=== PATIENT | male | born 1960 | race Caucasian/White ===

== ENCOUNTER 2016-04-20 08:55 | Day surgery (SDC) | payer OTHER ==
[~2016-04-20 08:55] MED LIST: LACTATED RINGERS 1,000 ML IV SCH
[2016-04-20 10:26] VITALS: TEMP 98.2
[2016-04-20] MEDS ORDERED: TRIAMCINOLONE ACETONIDE 40 MG/ML 1 ML VIAL ONE (10:33)
[2016-04-20] MEDS ORDERED: IOHEXOL 180 MG/ML 1 ML ML ONE (10:33)
[2016-04-20] MEDS ORDERED: fentaNYL (PF) 50 MCG/ML 2 ML AMP ONE (10:33)
[2016-04-20] MEDS ORDERED: MIDAZOLAM 2 MG/2 ML VIAL ONE (10:33)
--- NOTE | 2016-04-20 10:57 | P.PCN ---
Date of Procedure: 04/20/16 Procedure(s) Performed: PREOP DIAGNOSIS: 1- Lumbar postlaminectomy syndrome POSTOP DIAGNOSIS:1- Lumbar postlaminectomy syndrome PROCEDURE: Caudal epidural steroid injection with epidurolysis and epidurogram under fluoroscopic guidance ANESTHESIA: Local with 1% lidocaine 3 ml ; IV sedation with Versed mg and fentanyl 200 g EBL: Minimal. PROCEDURE INDICATION: The patient with post-laminectomy syndrome with low back pain and radiculopathy radiating down in both legs, here for a caudal epidural steroid injection with epidurolysis. PROCEDURE DESCRIPTION: The patient was seen and identified in the preoperative area. Risks, benefits, complications, and alternatives were discussed with the patient. The patient agreed to proceed with the procedure and signed the consent. IV was started, and vital signs were stable. Patient was taken to the OR and time out was completed. The patient was placed in the prone position on procedure table and a pillow was placed under the abdomen to reduce lumbar lordosis. The lumbosacral area was prepped and draped in the usual sterile fashion. Vital signs were closely monitored during the procedure. lateral view and the anterior-posterior plates of the sacrum were identified with infiltration of the area overlying the sacral hiatus with 1% lidocaine .A 17 gauge RK epidural needle was used to advance through the sacral hiatus into the caudal epidural space. Omnipaque 180 dye. 2cc was injected and the position of the needle was verified to be in the midline. A Racz catheter was introduced into the epidural space and was advanced towards the L5-S1 interspace under direct fluoroscopic guidance. Multiple passes were made with the catheter for lysis of epidural adhesions. Kenalog 80 mg with 3ml of preservative free Lidocaine 1% and 5 ml of preservative free normal saline was injected slowly. Additional spread was seen to L4 under fluoroscopy. The needle and the catheter were withdrawn intact. EPIDUROGRAM: Omnipaque 180 mg dye 2 ml was injected with spread of the dye into the caudal epidural space and with spread cutoff at L5 prior to epidurolysis. Post epidurolysis dye 2 ml was injected and spread was seen to L4- 5 .There was further spread of the solution together with the dye above the L3 COMPLICATIONS: None. DISPOSITION / PLANS: The patient was placed in a supine position and transferred to the recovery area in a stable condition for observation and was discharged from the recovery room after meeting discharge criteria. Home discharge instructions given to the patient by the staff. The patient was reexamined prior to discharge. The patient will schedule a follow up in the clinic in 2-4 weeks.
[2016-04-20] MEDS: IV FLUID CONTINUATION 1,000 ML IV ONE ×2 (11:10→11:33)
[2016-04-20 11:14] VITALS: RESP 16
[2016-04-20 11:26] VITALS: BP 115/70; PULSE 58
--- NOTE | 2016-04-20 11:37 | FL ---
EXAMINATION TYPE: FL guided pain mgmt statistic DATE OF EXAM: 04/20/2016 11:25 AM CLINICAL HISTORY: Low back and sacral pain. TECHNIQUE: Fluoroscopy. COMPARISON: None. FINDINGS: Fluoroscopic guidance was provided during pain relief procedure performed by Dr. Mcgarry . A total of 8 seconds of fluoroscopic time was utilized during the procedure and 3 spot images are acquired. Images acquired shows needle localization at level of the sacrum. Postsurgical changes in the lower lumbar spine are noted. IMPRESSION: As Above.
== END 2016-04-20 11:35 | disposition home or self-care (01) ==
LOC: ORPAIN 08:55
PROVIDERS: ATTEND Specialist
DX: M96.1 Postlaminectomy syndrome, not elsewhere classified (principal)
CPT/HCPCS: 62264; J2250; J3301; Q9965; J3010

== ENCOUNTER → 2016-05-12 | Day surgery (SDC) | payer OTHER ==
[2016-05-07 11:11] VITALS: BMI 24.9
[~2016-05-12] MED LIST changes: +IOHEXOL 180 MG/ML 1 ML ML ONE; -LACTATED RINGERS 1,000 ML IV SCH; +MIDAZOLAM 2 MG/2 ML VIAL ONE; +TRIAMCINOLONE ACETONIDE 40 MG/ML 1 ML VIAL ONE; +fentaNYL (PF) 50 MCG/ML 2 ML AMP ONE
[2016-05-12 08:20] VITALS: TEMP 97.7
[2016-05-12] MEDS: LIDOCAINE 1% 20 ML VIAL (10MG/ML) FOR IV START INTRADERMA ONE (08:34)
[2016-05-12] MEDS: LACTATED RINGERS 1,000 ML IV SCH (08:34)
[2016-05-12 08:37] LABS: Glucose,Whole Blood 89 mg/dL (75-99)
--- NOTE | 2016-05-12 09:22 | P.PCN ---
Date of Procedure: 05/12/16 Procedure(s) Performed: PREOP DIAGNOSIS: 1- Lumbar postlaminectomy syndrome POSTOP DIAGNOSIS:1- Lumbar postlaminectomy syndrome PROCEDURE: Caudal epidural steroid injection with epidurolysis and epidurogram under fluoroscopic guidance ANESTHESIA: Local with 1% lidocaine 3 ml ; IV sedation with Versed 2 mg and fentanyl 150 g EBL: Minimal. PROCEDURE INDICATION: The patient with post-laminectomy syndrome with low back pain and radiculopathy radiating down in both legs, here for a caudal epidural steroid injection with epidurolysis. PROCEDURE DESCRIPTION: The patient was seen and identified in the preoperative area. Risks, benefits, complications, and alternatives were discussed with the patient. The patient agreed to proceed with the procedure and signed the consent. IV was started, and vital signs were stable. Patient was taken to the OR and time out was completed. The patient was placed in the prone position on procedure table and a pillow was placed under the abdomen to reduce lumbar lordosis. The lumbosacral area was prepped and draped in the usual sterile fashion. Vital signs were closely monitored during the procedure. lateral view and the anterior-posterior plates of the sacrum were identified with infiltration of the area overlying the sacral hiatus with 1% lidocaine .A 17 gauge RK epidural needle was used to advance through the sacral hiatus into the caudal epidural space. Omnipaque 180 dye. 2cc was injected and the position of the needle was verified to be in the midline. A Racz catheter was introduced into the epidural space and was advanced towards the L5-S1 interspace under direct fluoroscopic guidance. Multiple passes were made with the catheter for lysis of epidural adhesions. Kenalog 80 mg with 3ml of preservative free Lidocaine 1% and 5 ml of preservative free normal saline was injected slowly. Additional spread was seen to L4 under fluoroscopy. The needle and the catheter were withdrawn intact. EPIDUROGRAM: Omnipaque 180 mg dye 2 ml was injected with spread of the dye into the caudal epidural space and with spread cutoff at L5 prior to epidurolysis. Post epidurolysis dye 2 ml was injected and spread was seen to L3- 4.There was further spread of the solution together with the dye above the L3 COMPLICATIONS: None. DISPOSITION / PLANS: The patient was placed in a supine position and transferred to the recovery area in a stable condition for observation and was discharged from the recovery room after meeting discharge criteria. Home discharge instructions given to the patient by the staff. The patient was reexamined prior to discharge. The patient will schedule a follow up in the clinic in 2-4 weeks.
[2016-05-12] MEDS: IV FLUID CONTINUATION 1,000 ML IV ONE ×2 (09:27→10:06)
--- NOTE | 2016-05-12 09:36 | FL ---
FLUOROSCOPY 4 seconds of fluoroscopy time were utilized during Pain Injection. 2 images document the procedure.
[2016-05-12 10:08] VITALS: BP 134/89; PULSE 64; RESP 18
== END ==
LOC: ORPAIN 07:50
PROVIDERS: ATTEND Specialist
DX: M96.1 Postlaminectomy syndrome, not elsewhere classified (principal)
CPT/HCPCS: 62264; J2250; J3301; Q9965; J3010

== ENCOUNTER → 2016-06-14 | Outpatient (CLI) | payer OTHER ==
[2016-06-14 14:37] VITALS: BP 123/84; PULSE 99; RESP 16; TEMP 98.5
--- NOTE | 2016-06-14 14:45 | P.PN ---
Progress Note - Text Patient returns for followup for chronic neck and back pain with radiation to bilateral lower extremities with numbness/tingling. Patient recently underwent caudal SHAI x 3, which provided some relief for 1-2 weeks' interval, and now patient wishes to return to Dr. Vargas to reconsider spine surgery. Patient continues on [place] [facility] for [facility] with good relief. Patient denies adverse drug effects from medications. Today, pt denies new-onset weakness, bowel/bladder incontinence, or any other signs or symptoms of cauda equina syndrome. There are no signs of acute intoxication, and no indications of medication diversion or overuse. In addition to above, 13-point review of systems is also negative for chest pain , shortness of breath, changes in vision, changes in hearing, new onset weakness , abdominal pain, diarrhea, extreme fatigue, malaise, fever, skin changes, homicidal or suicidal ideation, or bowel or bladder incontinence. Vital Signs: Reviewed in EMR Gen: WDWN, AAOx3, NAD HEENT: NCAT, EOMI, hearing grossly normal Pulm: resp unlabored Abd: soft, NT, ND Neck: supple, trachea midline ROM in flexion cervical spine: reduced ROM in extension cervical spine: reduced Cervical paravertebral tenderness: + Cervical Facet tenderness: ++ bilateral, R > L Spurling's: neg Upper extremity: decreased veneer measurer strength due to pain ROM in flexion lumbar spine: reduced ROM in extension lumbar spine: reduced Lumbar paravertebral tenderness: + Facet loading: + bilateral SI joint tenderness: + R side Osito's test: + R side Straight leg raise: + RLE Lower extremity: decreased ROM dorsiflexion/plantarflexion strength, hip flexion/extension, and knee flexion/extension secondary to pain Neuro: CN II-XII grossly intact, muscle strength lower extremities PRESERVED Imaging: Reviewed in EMR Assessment: 1. lumbar postlaminectomy syndrome 2. cervical spondylosis without myelopathy 3. lumbar spondylosis without myelopathy Plan: 1. Explanation: Opioid and psychological risk scores were reviewed. Diagnoses , prognoses, and multiple treatment options including but not limited to physical therapy, interventional therapies, adjuvant medical therapies, narcotic medication therapies, and surgery were discussed with the patient and all questions were answered to the patient's satisfaction. 2. Opioid agreement: no opioids prescribed today 3. Counseling: The patient was counseled extensively on BODY MASS INDEX, EXERCISE. Specifically, the patient was instructed regarding the importance of weight control and exercise in the context of both chronic pain and overall health. 4. Procedures: none for now 5. Consultations: None 6. Investigations: None 7. Medications: none prescribed 8. Disposition: f/u as needed; patient to return to Dr. Vargas and likely undergo repeat spinal surgery. PQRS measures: 1-Patient's medications are documented in the chart. 2-Tobacco use is negative 3-Patient has had a pneumococcal vaccine. 4-Advanced care planning discussed, patient unable to give. 5-Opioid contract NOT signed with the patient as we do not prescribe opioids for him. 6-Pain positive, follow-up visit or procedure scheduled 7-Patient's blood pressure measured and documented, and WNL 8-Patient's weight was measured, and body mass index within the normal limits. 9-Patient WAS NOT identified as an unhealthy alcohol user.
== END | disposition home or self-care (01) ==
LOC: PNWHC3 14:13
PROVIDERS: ATTEND Anesthesiology
DX: G89.29 Other chronic pain (principal); M96.1 Postlaminectomy syndrome, not elsewhere classified; M47.812 Spondylosis without myelopathy or radiculopathy, cervical region; M47.816 Spondylosis without myelopathy or radiculopathy, lumbar region; Z71.3 Dietary counseling and surveillance; Z79.891 Long term (current) use of opiate analgesic
CPT/HCPCS: 99211

== ENCOUNTER → 2016-07-08 | Outpatient (CLI) | payer OTHER ==
--- NOTE | 2016-07-08 13:07 | MR ---
EXAMINATION TYPE: MR lumbar spine wo/w con DATE OF EXAM: 07/08/2016 12:46 PM COMPARISON: NONE HISTORY: Low back pain, Radiculopathy TECHNIQUE: T1 and T2 axial and sagittal images of the lumbar spine are submitted. FINDINGS: There is no abnormal signal seen within the visualized spinal cord or paraspinal soft tissu es. L1-L2: Mild disc desiccation is noted. Mild posterior disc bulge. No herniation protrusion or central stenosis. Visualized foramina are patent bilaterally. L2-L3: Mild disc desiccation is noted. Mild posterior disc bulge. No herniation protrusion or central stenosis. Visualized foramina are patent bilaterally. L3-L4: Mild disc desiccation is noted. Mild posterior disc bulge. No herniation protrusion or central stenosis. Visualized foramina are patent bilaterally. L4-L5: Changes of lumbar laminectomy with intervertebral body spacer. Alignment is anatomic. Nonenhan cing right paracentral disc material with encapsulating spur results in hard disk in right lateral re cess stenosis as well as significant right foraminal encroachment. There is a rounded area of low sig nal on T1 and T2 imaging near the right neural foramina posterior to the lower margin of the L4 verte bral body which may represent a calcified small disc fragment. Measures 5 mm. L5-S1: Changes of lumbar laminectomy with intervertebral body spacer. Alignment is anatomic. Left par acentral and central disc bulging is stable. Lumbar segments are intact. No paraspinal masses are identified. Conus medullaris has a normal appear ance. No pathologic enhancement is identified. Sagittal disc bulging T11-T12 is stable. IMPRESSION: 1. Stable changes of lumbar laminectomy at L4-L5 and L5-S1. 2. Multilevel foraminal encroachment. Again noted is an area of signal paracentrally the right at L4- L5 which may represent hard disc material. Small residual or extruded disc fragment along the anterio r lateral margin of the right thecal sac near the neural foramina suggested which appears to be low i n signal on both T2 and T1 weighted imaging suggestive of a ossified or calcified fragment. Correlate clinically. Measures 5 mm. 3. Stable central and left paracentral disc bulging L5-S1.
== END | disposition home or self-care (01) ==
LOC: RADMRIMAIN 11:08
PROVIDERS: ATTEND Neurological Surgery
DX: M51.17 Intervertebral disc disorders with radiculopathy, lumbosacral region (principal); Z98.890 Other specified postprocedural states
CPT/HCPCS: 72158; A9577

== ENCOUNTER → 2017-10-11 | Outpatient (CLI) | payer OTHER ==
[2017-10-11 19:47] LABS: Blood Urea Nitrogen 21 mg/dL (9-20)
--- NOTE | 2017-10-12 00:58 | MR ---
EXAMINATION TYPE: MR tspine/lspine wo/w con DATE OF EXAM: 10/11/2017 COMPARISON: HISTORY: Mid/lower back pain, 2 prev lumbar surgeries TECHNIQUE: Multiplanar, multisequence images of the lumbar spine is performed without and with IV contrast, util izing 9 mL intravenous Gadavist FINDINGS: Thoracic vertebra have normal alignment. There is metal artifact from old anterior fusion surgery at C5 C6 C7. There is small posterior cervical disc herniation at C7-T1 without significant impingement on the spinal canal. The thoracic spinal cord has fairly normal signal pattern. There is no evidence of edema. There is small posterior disc herniation at T11-12 without significant impingement on the c ord. There is no spinal stenosis. There is a rounded area of increased signal within the T9 vertebral body that could be hemangioma. There is no compression fracture in the thoracic spine. There is no t horacic paraspinal mass. Thoracic neural foramina appear fairly well-maintained. There is metal artifact from disc prosthesis at L4-5 and L5-S1. There is narrowing of L4-5 L5-S1 disc spaces. There is similar narrowing at L2-3 and L3-4. There is hypertrophic facet arthropathy and mil d lateral recess stenosis at L3-4. There is no lumbar paraspinal mass. The sacroiliac joints appear i ntact. I see no focal bone destruction. There is endplate spur formation posteriorly at L4-5 and L5-S 1 with mild encroachment on the spinal canal. I see no significant lumbar spinal stenosis. There is n o pathologic enhancement. There is slight narrowing of the right side L4-5 neural foramen due to post erior endplate spur formation and hypertrophic facet arthropathy. IMPRESSION: Previous surgery. No spinal stenosis. Small posterior disc bulging and spur formation at L4-5 and L5- S1. Similar changes at C7-T1. No fracture. Lateral recess stenosis at L3-4 due to facet arthropathy.
== END | disposition home or self-care (01) ==
LOC: RADMRIMAIN 19:01
PROVIDERS: ATTEND Internal Medicine
DX: M48.061 Spinal stenosis, lumbar region without neurogenic claudication (principal); M51.27 Other intervertebral disc displacement, lumbosacral region; M46.96 Unspecified inflammatory spondylopathy, lumbar region; Z98.890 Other specified postprocedural states
CPT/HCPCS: 82565; 84520; 72157; 72158; 36415; A9581

== ENCOUNTER → 2019-12-31 | Outpatient (CLI) | payer OTHER ==
--- NOTE | 2019-12-31 21:02 | MR ---
EXAMINATION TYPE: MR shoulder RT wo con DATE OF EXAM: 12/31/2019 COMPARISON: 03/19/2011 HISTORY: Rt shoulder pain Multiplanar multiecho imaging of the right shoulder was performed without contrast. There is a mild shoulder joint effusion. There is fluid around the biceps tendon. There is fluid arou nd the subscapularis tendon. The glenoid antonio appear intact. The supraspinatus tendon is intact. The re is no retraction. There are small areas of increased signal in the tendon without a full-thickness tear. The scapula is intact. Humeral head is intact. There are small degenerative cysts in the great er tuberosity of the humerus. There is some mild spurring at the AC joint. There is no subacromial im pingement. There is slight narrowing of the glenohumeral joint space. IMPRESSION: No evidence of rotator cuff tear. Shoulder joint effusion suggestive of some nonspecific synovitis. There is been apparently surgery at the AC joint and improvement in the subacromial impingement and s pur formation. Joint effusion increased compared to old exam. No fracture seen. Small degenerative cy sts in the greater tuberosity of the humerus increased compared to old exam..
== END | disposition home or self-care (01) ==
LOC: RADMRIMAIN 19:49
PROVIDERS: ATTEND Internal Medicine
DX: M25.411 Effusion, right shoulder (principal); M75.41 Impingement syndrome of right shoulder; M25.711 Osteophyte, right shoulder

== ENCOUNTER → 2020-01-25 | Day surgery (SDC) | payer OTHER ==
[2020-01-23 17:21] VITALS: BMI 27.7
--- NOTE | 2020-01-24 09:25 | HP ---
HISTORY AND PHYSICAL CHIEF COMPLAINT: Right shoulder pain. HISTORY OF PRESENT ILLNESS: The patient is a 60-year-old, [id number] male, on disability, who presents with progressive right shoulder pain after previous injury. He hurt it lifting a water jug. He notes pain with overhead use and at night. He has tried injections along with medications and a stretching regimen with persistence of his symptoms. He notes daily pain that limits him significantly. PAST MEDICAL HISTORY: Significant for hypertension, arthritis. PAST SURGICAL HISTORY: Significant for cervical fusion, multiple knee procedures in addition to left rotator cuff surgery. CURRENT MEDICATIONS: Atenolol, aspirin, baclofen, cyclobenzaprine, lisinopril, ibuprofen, [place], trazodone and ropinirole. He denies drug allergies. FAMILY HISTORY: Significant for heart disease and cancer. SOCIAL HISTORY: Significant for previous tobacco use in addition to social alcohol use. 16 POINT REVIEW OF SYSTEMS: Otherwise reviewed and is noncontributory. PHYSICAL EXAMINATION: On examination, the patient is approximately 6 foot 2, 205 pounds of mesomorphic habitus. HEENT: Exam is nonfocal. He is tender about the right shoulder anterior subacromial space. He has mild subacromial crepitus. Active range of motion, forward elevation 130 degrees, external rotation with the arm side 65 degrees, internal rotation to L3. Motor strength is 5-/5 for abduction and external rotation. Impingement test, NEER test are positive. His distal neurovascular exam appears intact in the right upper extremity. Previous MRI of the right shoulder shows a possible partial-thickness tear of the rotator cuff along with synovitis of the glenohumeral joint. Bicipital tendinosis noted. There is also significant acromioclavicular joint arthritis. IMPRESSION: 1. Right shoulder impingement with rotator cuff tendinitis with possible partial- thickness tear. 2. Right proximal bicipital tendinosis. 3. Right acromioclavicular clavicular joint synovitis/arthritis. RECOMMENDATIONS: I talked to the patient at length regarding his condition and treatment options. At this point, he remains quite symptomatic despite conservative measures. After thorough discussion, he opts to proceed with surgery. We will plan to proceed with arthroscopic evaluation with probable subacromial decompression in addition to a rotator cuff debridement versus repair, biceps tenotomy, and possible distal clavicular resection. We will likely perform that as an outpatient procedure. Risks and benefits were discussed at length in layman's terms. MMODL / IJN: [id number] /
[~2020-01-25] MED LIST changes: +DEXAMETHASONE SOD PHOSPHATE 10 MG/ML 1 ML VIAL IV ONE; +GLYCOPYRROLATE 0.2 MG/ML 2 ML VIAL ONE; +HYDROmorphone 0.5 MG/0.5 ML SYRINGE IVP PRN; -IOHEXOL 180 MG/ML 1 ML ML ONE; +LACTATED RINGERS 1,000 ML IV ONE; +LACTATED RINGERS 1,000 ML IV SCH; +LIDOCAINE 1% (10MG/ML) FOR IV START SQ ONE; +LIDOCAINE 1% INJ 10MG/ML (20 ML MDV) ONE; +MIDAZOLAM 2 MG/2 ML VIAL IV ONE; +MIDAZOLAM 2 MG/2 ML VIAL IV PRN; +NEOSTIGMINE 1 MG/ML 10 ML VIAL ONE; +ONDANSETRON 4 MG/2 ML VIAL IVP ONE; +PHENYLEPHRINE-0.9% NACL SYG 1 MG/10 ML SYRINGE ONE; +PROPOFOL 10 MG/ML 20 ML VIAL IV ONE; +ROCURONIUM 10 MG/ML (10 ML VIAL) IV ONE; +ROPIVACAINE 5 MG/ML 30 ML VIAL ONE; +SCOPOLAMINE 1.5MG/72HR PATCH TRANSDERM ONE; +SUCCINYLCHOLINE CHLORIDE 100 MG/5 ML SYR IV ONE; -TRIAMCINOLONE ACETONIDE 40 MG/ML 1 ML VIAL ONE
--- NOTE | 2020-01-25 11:54 | P.OP ---
Date of Procedure: 01/25/20 Preoperative Diagnosis: Right shoulder impingement/bicipital tendinosis/acromioclavicular joint arthritis Postoperative Diagnosis: Same in addition to high-grade partial-thickness tear intra-articular portion long head of the biceps Procedure(s) Performed: Right shoulder arthroscopic subacromial decompression/biceps tenotomy/distal clavicular resection Anesthesia: eric ANDRADE Surgeon: Satya Valladares Pain Coordinator #1: Efra Tobin Estimated Blood Loss (ml): 10 Pathology: none sent Condition: stable Disposition: PACU Indications for Procedure: The patient's a 60-year-old male presents with progressive right shoulder pain despite conservative measures. A discussion of the risks and benefits of operative intervention versus continued conservative measures was made with patient. He opted proceed with surgery. Operative risks to include infection, neurovascular injury, development of blood clots, possible postoperative stiffness, and possible need for subsequent procedures was discussed. Informed consent was obtained. Operative Findings: As below Description of Procedure: The patient was brought to the operating room, and after induction of general anesthesia was placed in a beachchair position. A preoperative interscalene block was placed for postoperative analgesia. I examined the right shoulder. There was no gross block to passive motion or gross glenohumeral instability. The right upper extremity was prepped and draped in normal fashion. The bony outlines the acromion, distal clavicle, and coracoid process were outlined with a skin marker. The glenohumeral joint was inflated with 50 mL of saline utilizing a spinal needle from posterior approach. A posterior portal was made through a 5 mm skin incision 1 cm medial and inferior to the posterior lateral border time. A blunt trocar was used to easily into the joint. Diagnostic arthroscopy was performed. An anterior portal was made just lateral to the coracoid process entering the joint above the subscapularis tendon. The subscapularis tendon appeared to be intact. Anterior labrum was intact. The inferior recess was inspected. The posterior labrum was intact. There was a high-grade partial-thickness tear of the long head of the biceps involving interarticular portion. It was elected to proceed with release at this point. This was released from the superior labrum with electrocautery and was allowed to retract to the bicipital groove. On inspection the rotator cuff, it was intact on the articular surface. The arthroscope was placed into the subacromial space. A lateral portal was made 2 centimeters inferior to the anterior lateral border of the acromion. The soft tissue on the undersurface the acromion was removed with electrocautery clearly defining the anterior medial and lateral borders as well as the distal clavicle. An anterior inferior acromial plasty is performed with a motorized mohinder starting anterolateral, then extending this posteriorly, then extending this medially. Is able to convert to a flat acromion. A felt there was adequate resection and increased subacromial space. Degenerative changes involving the acromioclavicular joint were noted. The distal 4 mm of clavicle was resected with a motorized mohinder. The rotator cuff was inspected. There was moderate bursitis was debrided with motorized shaver. The rotator cuff showed some scuffing and fraying however no high-grade partial or full-thickness tear. The arthroscope was then removed. The portals were closed with simple 3-0 nylon sutures. A sterile dressing was applied in addition to a sling. The patient was then awoken from general anesthesia and transferred to recovery room in good condition. Blood loss was estimated at 10 mL. No complications were incurred. Sponge and needle counts were correct in the case. Del HERMAN assisted and the major components of the case to include arm positioning, decompression, and distal clavicular resection.
[2020-01-25 12:06] VITALS: TEMP 97.1
[2020-01-25 12:40] VITALS: RESP 16
[2020-01-25 12:58] VITALS: BP 121/77; PULSE 71
--- NOTE | 2020-01-25 21:59 | P.ANPRN ---
Procedure Note - Anesthesia - Nerve Block Performed Right Interscalene Time Out Performed: Yes (:) Date of Procedure: 01/25/20 Procedure Start Time: Procedure Stop Time: Location of Patient: PreOp Indication: Acute Post-Operative Pain, Requested by Surgeon (Dr Valladares) Sedation Type: Sedate with meaningful contact maintained Preparation: Sterile Prep Position: Supine Catheter: None Needle Types: Pajunk (22g) Ultrasound used to visualize needle placement: Yes Ultrasound used to observe medication spread: Yes Injectate: 0.5% Ropivacaine (see comment for volume) (20cc) Blood Aspirated: No Pain Paresthesia on Injection Noted: No Resistance on Injection: Normal Image Stored and Saved: Yes Events: Uneventful and Well Tolerated
== END | disposition home or self-care (01) ==
LOC: OR 08:31
PROVIDERS: ATTEND Orthopaedic Surgery
DX: S46.111A Strain of muscle, fascia and tendon of long head of biceps, right arm, initial encounter (principal); X50.0XXA Overexertion from strenuous movement or load, initial encounter; M19.011 Primary osteoarthritis, right shoulder; M75.21 Bicipital tendinitis, right shoulder; M65.9 Synovitis and tenosynovitis, unspecified; Z98.1 Arthrodesis status; M06.9 Rheumatoid arthritis, unspecified; K21.9 Gastro-esophageal reflux disease without esophagitis; I10 Essential (primary) hypertension; J44.9 Chronic obstructive pulmonary disease, unspecified; Z98.890 Other specified postprocedural states; Z82.49 Family history of ischemic heart disease and other diseases of the circulatory system; Z80.9 Family history of malignant neoplasm, unspecified; Z79.82 Long term (current) use of aspirin; Z79.891 Long term (current) use of opiate analgesic; Z79.899 Other long term (current) drug therapy; Z79.1 Long term (current) use of non-steroidal anti-inflammatories (NSAID)
CPT/HCPCS: 64415; 76942; 29823; 29824; J2250; J1100; J2710; J0690; J2405; J2001; J3010; J2795; J2370; J0330; J2704

== ENCOUNTER 2021-06-10 06:52 | Day surgery (SDC) | payer OTHER ==
[2021-06-08 11:55] VITALS: BMI 26.3
[~2021-06-10 06:52] MED LIST changes: -DEXAMETHASONE SOD PHOSPHATE 10 MG/ML 1 ML VIAL IV ONE; -GLYCOPYRROLATE 0.2 MG/ML 2 ML VIAL ONE; -HYDROmorphone 0.5 MG/0.5 ML SYRINGE IVP PRN; -LACTATED RINGERS 1,000 ML IV ONE; -LIDOCAINE 1% (10MG/ML) FOR IV START SQ ONE; -LIDOCAINE 1% INJ 10MG/ML (20 ML MDV) ONE; -MIDAZOLAM 2 MG/2 ML VIAL IV ONE; -MIDAZOLAM 2 MG/2 ML VIAL IV PRN; -MIDAZOLAM 2 MG/2 ML VIAL ONE; -NEOSTIGMINE 1 MG/ML 10 ML VIAL ONE; -ONDANSETRON 4 MG/2 ML VIAL IVP ONE; -PHENYLEPHRINE-0.9% NACL SYG 1 MG/10 ML SYRINGE ONE; -PROPOFOL 10 MG/ML 20 ML VIAL IV ONE; -ROCURONIUM 10 MG/ML (10 ML VIAL) IV ONE; -ROPIVACAINE 5 MG/ML 30 ML VIAL ONE; -SCOPOLAMINE 1.5MG/72HR PATCH TRANSDERM ONE; -SUCCINYLCHOLINE CHLORIDE 100 MG/5 ML SYR IV ONE; -fentaNYL (PF) 50 MCG/ML 2 ML AMP ONE
[2021-06-10] MEDS ORDERED: LACTATED RINGERS 1,000 ML IV ONE (07:39)
[2021-06-10 07:40] VITALS: TEMP 97.3
[2021-06-10] MEDS ORDERED: PROPOFOL 10 MG/ML 20 ML VIAL IV ONE (08:06)
[2021-06-10] MEDS ORDERED: LIDOCAINE 1% INJ 10MG/ML (20 ML MDV) ONE (08:06)
--- NOTE | 2021-06-10 08:27 | P.PCN ---
Date of Procedure: 06/10/21 Procedure(s) Performed: Brief history: Patient is a pleasant 61-year-old white male scheduled for an elective upper endoscopy as well as colonoscopy as a part of evaluation of GERD and screening for colorectal neoplasia. He has intermittent episodes of nausea vomiting. Procedure performed: Esophagogastroduodenoscopy with biopsy Colonoscopy Preoperative diagnosis: GERD/intermittent episodes of nausea vomiting Screening for colon cancer [place]est[place] [facility] [place]: After informed consent was obtained from the patient was brought into the endoscopy unit and IV sedation was administered by anesthesia under continuous monitoring. Initially upper endoscopy was done. The Olympus GF 160 video endoscope was inserted inserted into the mouth and esophagus intubated without any difficulty and was gradually advanced into the stomach and duodenum and carefully examined. The bulb and second part of the duodenum appeared normal. The scope was then withdrawn into the stomach adequately insufflated with air and upon careful examination the antrum had mild gastritis and biopsies were done from this area. The body, cardia and fundus appeared normal. The scope was then withdrawn into the esophagus. The GE junction was located at 40 cm to the incisors. It appeared regular with no erythema erosions or ulcerations. Rest of the esophagus appeared normal. abscesses were done from the distal esophagus. Patient tolerated the procedure well. At this time the patient continued to remain sedation. Initial digital rectal examination was normal. Olympus CF 160 video colonoscope was then inserted into the rectum and gradually advanced to the cecum without any difficulty. Careful examination was performed as the scope was gradually being withdrawn. The prep was excellent. The cecum, ascending colon, transverse colon, descending colon, sigmoid colon and rectum appeared normal. Retroflexion was performed in the rectum and no lesions were noted. Patient tolerated the procedure well. Impression: 1. Upper endoscopy revealed mild antral gastritis and esophagitis or peptic ulcer disease 2. Colonoscopy was within normal limits with no evidence of colorectal neoplasia Recommendations: Findings of this examination were discussed with the patient as well as his family. He was advised to follow with the biopsy results. Continue with omeprazole 20 mg daily half hour before breakfast and follow antireflux measures. recommend repeat screening colonoscopy in 10 years.
[2021-06-10 09:01] VITALS: BP 112/72; PULSE 66; RESP 20
== END 2021-06-10 09:15 | disposition home or self-care (01) ==
LOC: ORWHC2ENDO 06:52
PROVIDERS: ATTEND Internal Medicine Gastroenterology
DX: Z12.11 Encounter for screening for malignant neoplasm of colon (principal); K21.00 Gastro-esophageal reflux disease with esophagitis, without bleeding; K29.50 Unspecified chronic gastritis without bleeding; I10 Essential (primary) hypertension; J44.9 Chronic obstructive pulmonary disease, unspecified; M19.90 Unspecified osteoarthritis, unspecified site; Z98.890 Other specified postprocedural states; Z79.1 Long term (current) use of non-steroidal anti-inflammatories (NSAID); Z79.891 Long term (current) use of opiate analgesic; Z79.899 Other long term (current) drug therapy
CPT/HCPCS: 88305; 43239; J2001; J2704; G0121; 45378

== ENCOUNTER → 2022-09-16 | Outpatient (CLI) | payer OTHER ==
[2022-09-16 09:22] VITALS: BP 134/90; PULSE 80; RESP 97; TEMP 97.7
--- NOTE | 2022-09-16 14:28 | P.PAINPG ---
PQRS Measure Charge Sheet Comment: HISTORY OF PRESENT ILLNESS: 62 yr old male as a referral from [facility] presents today w severe and chronic neck pain secondary to post cervical laminectomy syndrome for evaluation. Pt states pain level is provoked at 8 /10 in intensity, constant, localized in the mid to lower cervical spine, achy in character w shooting pain towards the BL fingers. Pain is provoked by rotation. Pain is alleviated by injections in the past, medications (Percocet, Flexeril, Ibu), ice, heat, use of a cane for ambulatory assistance, use of a cervical pillow, repositioning and rest. Patient states he participated in PT integrated w massage 2 weeks in [place] 2022 which provided no relief. PMH: Past Medical History: COPD, GERD, HTN, OA PSH: BL RFA C4-C6 (2015), EGD w Biopsy (2021), Lumbar Surgery, Shoulder Surgery, Knee Surgery SH: Daily tobacco use, Occasional ETOH use, Cannabis use FH: Mo- [place] All: NKDA Meds: See list REVIEW OF ORGAN SYSTEMS: CONSTITUTIONAL: No fevers or chills. No recent weight loss. NEUROLOGICAL: + numbness and tingling along the distal extremities. No seizure disorders or headaches. MUSCULOSKELETAL: + pain PSYCHIATRIC: Denies current depression or suicidal thoughts. Physical Examinations : Constitutional : Cooperative , not in acute distress . Neurologic : Cranial nerve II to XII intact. No focal neurological deficits. Psychiatric : alert & oriented x 3. Matching mood & appropriate affect. Judgment & insight intact. Musculoskeletal : Cervical Spine Motor strength in the deltoid and biceps: Normal right side. Normal Left side Motor strength biceps and the wrist extensors: Normal right side . Normal left side Motor strength in the triceps muscle: Normal right side. Normal left side Deep tendon reflexes: Normal at the biceps. Normal at Brachioradialis. Normal at triceps Vertebral body tenderness to deep palpation over C7 Cervical facet loading test: positive bilaterally Spurling test: positive bilaterally over C7, T1 Neck distraction test: positive bilaterally Og sign: positive bilaterally Lumbar spine Motor strength lower extremities ,thigh and legs 5/5 Right side , 5/5 Left side Deep tendon reflexes : Normal Knee Jerk. Normal Ankle Jerk Vertebral body tenderness over Bowser Test positive Lumbar facet Loading Test: positive Right / positive Left Range of motion of the lumbar spine Flexion 30 degrees, extension 10 degrees Straight Leg Raise test: Left/ Right positive at degree Shayne test: positive right / positive left. Severe tenderness over the Sacroiliac joint on the Right / Left sides Gaenslen test: positive bilaterally Seated flexion test: positive bilaterally. Sacral spine : Severe tenderness over the Sacroiliac joint: right side / left side Range of motion: Flexion of the lumbar spine <60 degrees Range of motion: Extension of the lumbar spine <20 degrees Gaenslen's Test positive Osito's Test positive Shayne test: positive right side / left side Thigh Thrust Test Sacral Thrust Test Imaging: MRI non contrast of the cervical spine from 06/24/22 reviewed Assessment/ Plan : Cervical DDD Recommendation of SHAI C7-T1. May need a series of injections for optimal pain relief. Risks, benefits of procedure discussed and patient verbalized understanding. Admits to aspirin or anti- coagulant use or medical history of diabetes. Protocol for discontinuation/ continuation of medications ocsme procedure discussed. Minimal anesthesia provided, if clinically indicated, consisting of Versed and Fentanyl. All questions answered. I have spent greater than 30 minutes on patient care today. Dr Mcgarry was available by phone for the evaluation of this patient. The time was used to review the medical records including relevant urine studies and Prescription history (MAPs), review of the available imaging, evaluation and examination of the patient, coordination of care with the medical staff and if applicable referring physicians, as well as creation of the medical record PQRS Narrative: Smoking Status Former smoker Hx Alcohol Use (MH) Yes: occ 2-3/week Home Medications: Ambulatory Orders Cyclobenzaprine [Flexeril] 20 mg PO HS 05/05/15 Ibuprofen [Motrin] 800 mg PO TID 05/05/15 Omeprazole [PriLOSEC] 40 mg PO BID PRN 05/05/15 Ondansetron HCl [Zofran] 4 mg PO Q8HR PRN 05/05/15 atenoloL [Tenormin] 25 mg PO DAILY 05/05/15 lisinopriL [Zestril] 10 mg PO DAILY 05/05/15 rOPINIRole HCL [Requip] 1 mg PO HS 05/05/15 traZODone HCL [Desyrel] 100 mg PO HS 05/05/15 Aspirin 325 mg PO DAILY 07/03/15 Pseudoephedrine HCl [Sudafed] 60 mg PO Q6HR PRN 07/03/15 Hydrocodone/Acetaminophen [[place] 10-325] 1 tab PO QID 06/14/16 SUMAtriptan succinate [Imitrex] 25 mg PO ONCE 06/10/21 Controlled Substance Measures - Controlled Substance Measures Is patient prescribed a controlled substance at discharge?: No
== END ==
LOC: PNWHC3 07:53
PROVIDERS: ATTEND Specialist
DX: M51.24 Other intervertebral disc displacement, thoracic region (principal); M47.22 Other spondylosis with radiculopathy, cervical region; M50.10 Cervical disc disorder with radiculopathy, unspecified cervical region; J44.9 Chronic obstructive pulmonary disease, unspecified; K21.9 Gastro-esophageal reflux disease without esophagitis; I10 Essential (primary) hypertension; M19.90 Unspecified osteoarthritis, unspecified site; Z79.899 Other long term (current) drug therapy; Z79.82 Long term (current) use of aspirin; Z79.891 Long term (current) use of opiate analgesic; Z72.0 Tobacco use
CPT/HCPCS: 99211

== ENCOUNTER 2022-10-14 09:36 | Day surgery (SDC) | payer OTHER ==
[2022-10-14] MEDS ORDERED: LACTATED RINGERS 1,000 ML IV SCH ×2 (09:45→09:56)
[2022-10-14 10:00] VITALS: TEMP 97.1
[2022-10-14] MEDS ORDERED: IOPAMIDOL M200 10 ML VIAL ONE (10:19)
[2022-10-14] MEDS ORDERED: DEXAMETHASONE SOD PHOSPHATE 10 MG/ML 1 ML VIAL ONE (10:19)
--- NOTE | 2022-10-14 10:27 | P.PCN ---
Date of Procedure: 10/14/22 Description of Procedure: Pre- and Post-operative Diagnosis: Cervical radiculopathy Procedure: C7-T1 Inter-Laminar Cervical Epidural Steroid Injection under biplanar fluoroscopy Surgeon: Breanna Barboza Anesthesia: Local: 1% Lidocaine, IV sedation : None Complications: None. Estimated blood loss: None Specimens removed: None Fluoroscopic image: saved to electronic medical records. Indications for Procedure: The patient has been suffering from neck pain and pain radiating to the upper extremity . Inadequate pain control with pharmacologic regimen. An inter-laminar approach cervical epidural steroid injection was scheduled for the patient. Procedure and Findings: The patient was seen and examined in the holding area. The written informed consent was obtained after explaining the risks, benefits, alternatives of the procedure to the patient. The patient was brought to the procedure room and was placed in the prone position on the operating table. A pillow was placed under the upper chest. Standard anesthesia monitoring was done through out the procedure. Timeout was completed. The skin preparation was done with ChloraPrep 1 and draping was done in usual sterile fashion. Sterile technique was observed throughout the procedure. Under fluoroscopic guidance, the C7-T1 inter-laminar space was identified. 3 ml of 1% Lidocaine was injected with a 25 gauge needle to achieve adequate local anesthesia of the skin and subcutaneous tissue. A 20 gauge, 3.5 inch Tuohy type epidural needle was placed and gradually advanced up to the epidural space using loss of resistance technique and fluoroscopic guidance. Lateral, oblique fluoroscopic views confirm the needle position. No paresthesia was noted. A negative aspiration was confirmed and then 1 ml of Isovue-200 was injected. A good dye spread was seen in the epidural space and it was negative for any intrathecal, intraneural or intravascular spread. A total of 6 ml solution containing 10 mg Dexamethasone, and 5 ml preservative-free Normal Saline was injected slowly with intermittent aspiration. The needle was removed intact, area was cleaned and bandage was applied. Disposition : The patient tolerated the procedure very well. The patient was transferred to the recovery room and remained stable until discharged home. The patient was given detailed discharge instructions for bleeding, infection, increased pain at the injection site, and was advised to seek immediate medical attention should significant side effects develop. The patient will be followed up with our Pain Clinic within 4 weeks for follow-up visit.
[2022-10-14 10:32] VITALS: BP 133/95; PULSE 66; RESP 16
--- NOTE | 2022-10-14 10:38 | FL ---
Intraoperative/procedural fluoroscopic services were provided. Total fluoroscopy time is 4.1 seconds with a total of 4 submitted images to PACS. Please see the operative/procedural note for further deta ils. DAP: [id number] mGym2
== END 2022-10-14 11:00 | disposition home or self-care (01) ==
LOC: ORPAIN 09:36
DX: M54.12 Radiculopathy, cervical region (principal); I10 Essential (primary) hypertension; M19.90 Unspecified osteoarthritis, unspecified site; Z98.1 Arthrodesis status; Z98.890 Other specified postprocedural states; Z79.82 Long term (current) use of aspirin; Z79.899 Other long term (current) drug therapy
CPT/HCPCS: 62321; J1100; Q9966

== ENCOUNTER → 2022-11-25 | Outpatient (CLI) | payer OTHER ==
--- NOTE | 2022-11-25 09:26 | CT ---
EXAMINATION TYPE: CT lumbar spine wo con CT DLP: 1003 mGycm, Automated exposure control for dose reduction was used. DATE OF EXAM: 11/25/2022 7:05 AM COMPARISON: Lumbar spine radiograph 11/23/2022, MRI lumbar spine 09/17/2022, MR thoracolumbar spine 2017.. CLINICAL INDICATION:Male, 62 years old with history of M47.26 SPONDYLOSIS WITH RADICULOPATHY; PHH, S pondylosis with radiculopathy TECHNIQUE: Multiple axial images were obtained from the midportion of T11 through the sacroiliac poli nts. Soft tissue and bone windows in coronal and sagittal planes were obtained and reviewed. FINDINGS: Alignment: There are 5 lumbar type vertebral bodies. Mild S-shaped curvature of the thoracic lumbar s pine. No significant spondylolisthesis. Bone: No evidence of fracture is identified. Laminectomy changes at L5. Multilevel degenerative disc disease with disc space narrowing, vacuum disc disease, endplate sclerosis, and anterior osteophytos is. Discs: Disc fusion cages demonstrated at L4-L5 and L5-S1. This creates streak artifact which limits e valuation. T12-L1: No spinal canal or neural foraminal stenosis is identified. L1-L2: Broad-based disc bulge without significant central canal stenosis. The neural foramen are valle nt bilaterally. L2-L3: Broad-based disc bulge with mild effacement of the intrathecal sac. Mild left neural foraminal narrowing. The right neural foramen is patent. L3-L4: Broad-based disc bulge and facet arthropathy with ligamentum flavum buckling contribute to mod erate central canal stenosis. Moderate right neural foraminal stenosis. The left neural foramen is mi ldly narrowed. L4-L5: Postsurgical changes. Right paracentral disc osteophyte complex identified without significan t central canal stenosis. The right neural foramen is moderately narrowed due to facet arthropathy an d the disc osteophyte complex. The left neural foramen is patent. L5-S1: Postsurgical changes without gross evidence for significant central canal or neural foraminal stenosis. Other: None IMPRESSION: 1. No evidence of fracture of the lumbar spine. 2. Postsurgical changes of the lumbar spine from L5 to S1. 3. Moderate multilevel degenerative disc disease and facet arthropathy as described above. Overall fi ndings appear similar to recent MRI lumbar spine 09/17/2022
== END | disposition home or self-care (01) ==
LOC: RADCTMAIN 06:45
PROVIDERS: ATTEND Orthopaedic Surgery
DX: M47.26 Other spondylosis with radiculopathy, lumbar region (principal); M51.16 Intervertebral disc disorders with radiculopathy, lumbar region; M99.73 Connective tissue and disc stenosis of intervertebral foramina of lumbar region
CPT/HCPCS: 72131

== ENCOUNTER → 2023-03-07 | Outpatient (CLI) | payer OTHER ==
[2023-03-07 15:11] LABS: INR 0.9 (<1.2); Partial Thromboplastin Time 25.9 sec (22.0-30.0); Prothrombin Time 10.3 sec (10.0-12.5)
== END | disposition home or self-care (01) ==
LOC: LABWHC1 13:35
PROVIDERS: ATTEND Student in an Organized Health Care Education/Training Program
DX: Z01.812 Encounter for preprocedural laboratory examination (principal)
CPT/HCPCS: 36415; 85610; 85730

== ENCOUNTER → 2023-03-07 | Outpatient (CLI) | payer OTHER ==
--- NOTE | 2023-03-07 14:57 | XR ---
EXAMINATION TYPE: XR chest 2V DATE OF EXAM: 03/07/2023 2:46 PM CLINICAL INDICATION:Male, 63 years old with history of Z01.818; [facility] COMPARISON: None TECHNIQUE: XR chest 2V Frontal and lateral views of the chest. FINDINGS: Lungs/Pleura: There is no evidence of pleural effusion, focal consolidation, or pneumothorax. Pulmonary vascularity: Unremarkable. Heart/mediastinum: Cardiomediastinal silhouette is unremarkable. Musculoskeletal: No acute osseous pathology. There is fixation hardware in the lower cervical spine. IMPRESSION: No acute cardiopulmonary disease/process.
== END | disposition home or self-care (01) ==
LOC: RADXRMAIN 14:26
PROVIDERS: ATTEND Student in an Organized Health Care Education/Training Program
DX: Z01.818 Encounter for other preprocedural examination (principal)
CPT/HCPCS: 71046

== ENCOUNTER → 2023-03-09 | Outpatient (CLI) | payer OTHER ==
[2023-03-09 16:20] LABS: HCT 46.5 % (39.6-50.0); HGB 15.8 g/dL (13.0-17.0); MCV 94.1 FL (80.0-97.0); Mean Platelet Volume 10.8 FL (9.5-12.2); NRBC Per 100 WBC 0 X 10*3/uL (0.00-0.01); Platelet Count 306 X 10*3/uL (140-440); RBC 4.94 X 10*6/uL (4.40-5.60); WBC 8.95 X 10*3/uL (4.50-10.00)
[2023-03-09 16:35] LABS: ALT 21 U/L (10-49); AST 18 U/L (14-35); Albumin 4.5 g/dL (3.8-4.9); Albumin/Globulin Ratio 2.05 Ratio (1.60-3.17); Alkaline Phosphatase 82 U/L (41-126); Blood Urea Nitrogen 20.2 mg/dL (9.0-27.0); Calcium 9.5 mg/dL (8.7-10.3); Carbon Dioxide 21.1 mmol/L (21.6-31.8); Chloride 109 mmol/L (96-109); Globulin 2.2 g/dL (1.6-3.3); Glucose 107 mg/dL (70-110); Potassium 4.3 mmol/L (3.5-5.5); Sodium 141 mmol/L (135-145); Total Bilirubin 0.5 mg/dL (0.3-1.2); Total Protein 6.7 g/dL (6.2-8.2)
== END | disposition home or self-care (01) ==
LOC: LABWHC1 10:17
PROVIDERS: ATTEND Orthopaedic Surgery
DX: M47.26 Other spondylosis with radiculopathy, lumbar region (principal); M48.061 Spinal stenosis, lumbar region without neurogenic claudication
CPT/HCPCS: 36415; 80053; 82306; 85027; 86850; 86900; 86901; 87070

== ENCOUNTER 2023-03-14 05:34 | Inpatient (IN) | payer OTHER ==
--- NOTE | 2023-03-13 17:16 | P.HPOR ---
History of Present Illness H&P Date: 03/02/23 .D:Date: 03/02/23 : 10:47am .T:Title: [facility] History and Physical Date of :64 [id number]: NKDA Age: 63 year Height: 6'2" Weight: 205 lbs BP:125/76 BMI: 26.32 kg/m2 Occupation: Disabled VAS: 5 Hand:Right Spine Surgery Risk Review Mr. Chambers is presenting for evaluation of lumbar pain. It was my pleasure to have seen and examined Mr. Chambers. In our visit today we have had a chance to go over subjective complaints, physical examination findings and treatments including the natural course history without intervention and various interventional options. The patients imaging demonstrates: XRay Lumbar Multiview (AP, Lateral, Flexion, Extension) with AP pelvis; 5 views taken at [facility] on 11/23/22: Moderate spondylitic and degenerative changes with thoracic scoliotic curvature. Multilevel diminished disc height. Hardware present at the L4-L5, L5-S1 levels, with disc height collapse. Multilevel bilateral foraminal stenosis. No acute osseous abnormalities. Pelvis: The visualized sacrum and iliac wings are within normal limits. MRI scancompleted at Outside facility from 09/17/22 of [facility]: Impression: 1. Straightening of the normal lumbar lordosis consistent with strain in the appropriate clinical circumstance versus secondary to extensive compressive discopathy as described above. Recommend clinical correlation. 2. L1-2: 23mm broad-based disc herniation effaces the ventral surface of the thecal sac without evidence of central canal or limiting foraminal stenosis. 3. L2-3: 23 millimeter broad-based disc herniation effaces the ventral surface of the thecal sac resulting in mild to moderate left neural foraminal encroachment and left exiting L2 nerve impingement conjunction with facet arthrosis. 4. L3-4: 34 millimeter broad-based disc herniation effaces the ventral surface of the thecal sac resulting in severe right and moderate to severe left neural foraminal encroachment and bilaterally exiting L2 nerve impingement in conju nction with facet arthrosis. Severe canal stenosis is seen. 5. L4-5: 34 millimeter right paracentral disc herniation with focal disc extrusion traveling 12.2 mm and a cranial direction effaces the ventral surface of the thecal sac resulting in severe right and moderate to severe left neural foraminal encroachment and bilateral exiting L4 nerve impingement in conjunction with facet arthrosis. 6. L5-S1: Posterior annular tear is seen within the intravertebral disc. 6-7 mm right paracentral disc herniation effaces the ventral surface of the thecal sac resulting in moderate left neural foraminal encroachment and left exiting L5 nerve impingement in conjunction with facet arthrosis. CT [facility] at [facility] from[facility]25[facility]22 of [facility]: Reviewed with pt L1-S1 spondylosis with stenosis Facet hypertrophy and osteophytosis anterior and posterior centraql and foraminal stenosis no fractures Pseudoarthrosis nostd anteriorly L4-5, L5-S1 On physical exam, Mr. Chambers demonstrates: Patient is currently reporting a burning, aching right lower back pain that radiates to his bilateral hips ongoing for approximately 8 years and worsening over the last 4 months with no known injury or trauma to indicate an exact onset of her symptoms. Patient states that occasionally he has crushing leg pain into the bilateral lower extremities with the right side being worse. He does note occasionally he has numbness and tingling into bilateral lower extremities. He does have a history of 2 spinal fusion performed by Dr. Garcia in 2009, patient is unsure of date. I have explained to the patient that as their condition progresses it will cause further neurological deficits and eventual paralysis. Based on the patients imaging, physical exam, and the rapid progression and disabling nature of their symptoms, at this time I recommend surgery in the form of a: lumbar revision L2- Pelvis Decompression and Fusion I discussed the risk and benefits of this procedure at length with Mr. Chambers. The patient agreed to considered pursuing the procedure abovementioned. Prior to surgery, she should follow up with her PCP (Cardio, ID, IM etc) for clearance. Questions were invited and answered, and the patient wishes to proceed as outlined below. Currently, I am recommendin.lumbar revision L2-Pelvis Decompression and Fusion 2.Follow up with PCP for surgical clearance 3.Review of surgical risks and benefits as well as an educational packet on the proposed surgical procedure. Risks: All surgical procedures come with inherent risks, including those related to positioning, anesthesia, intraoperative findings, and postoperative complications. It is important to understand that surgery does not come with any guarantee of a successful outcome as complications and adverse events are always possible. The patient was given a handout in office today discussing the surgical procedure and risks associated with the intervention, both of which were discussed with the patient. These risks include but are not limited to the following: * Experiencing same, different or even worse symptoms in back, neck, arms, or legs compared to before surgery. Requiring further surgery or other forms of treatment presently or at some time in the future at same or other levels of the intended spine surgery. On an extreme but fortunately relatively rare basis severe complication such as blindness, stroke, heart attack, temporary and/or permanent nerve injury, paralysis, coma, or may occur, sometimes without known explanation. Surgical complications may include but are not limited to risk of infection, fluid accumulation in the surgical dissection site, including a seroma or hematoma, that requires additional surgery, wound drainage, bleeding, new numbness or weakness, vision changes/loss, spinal fluid leakage, non-healing and/or infected incision, headaches, difficulty or inability to swallow, hoarseness, hemopneumothorax, pneumothorax, impotence, retrograde ejaculation, vaginal dryness; injury to nerves, spinal cord, blood vessels, lymphatics or other vital organs (i.e., bowel injury, injury to the great vessels); heterotopic bone formation; complications related to the hardware such as screws, rods, cages including misplaced hardware, device failure, instrumentation at the wrong spine level, hardware fracture/breakage, or hardware loosening; vertebral failure of the spinal column above or below the newly placed hardware; retained surgical instrumentations or devices and the need for further surgery. * Medical risks of the planned spine surgery include but are not limited to generalized Infections to the whole body or local areas outside of the surgical site (sepsis), heart attack, bleeding, anaphylaxis, meningitis, seizure, epilepsy, hearing loss, burn morales, laceration of the head or other areas of the body, bruising, hypersensitivity of the skin, bladder over distension; allergic reaction; shoulder injury related to positioning; fat, blood and air clots to other areas of the body like heart, lungs, brain; failure of internal organs such as lungs, kidneys, liver and excessive bleeding. If blood transfusions are necessary, note that transfusions may cause intolerance reactions such as anaphylaxis or other complex reactions. Despite best efforts, the results of spine surgery might not heal in terms of bone, soft tissues such as skin, fascia, ligaments, and joints. Additionally, in order to achieve best possible results, spine surgery may be carried out beyond the initially planned levels and involve decompression, fusion including insertion of hardware at levels other than the original intended area of surgical interest change some portions of the procedure in order to ensure the best possible outcomes. With spine surgery and spinal fusion, there are different off label uses of instrumentation (devices, implants and hardware) as well as biological substances (bone morphogenic proteins, demineralized bone matrix) as well as using extra bone from allograft sources (i.e. cadaver bone) or autograft (iliac crest bone, ribs, or the spine itself). The patient has been given information about these practices and their inherent risks and benefits. [facility] is an educational center that serves as a training facility for neurosurgical and orthopedic REMOTE ADVIS[employer] and Nursing students. Physician assistants are medically trained surgical providers who function in the outpatient, inpatient, and operating room setting under the direct supervision of the attending surgeon. [facility] has multiple operating rooms with single and overlapping rooms running daily. They currently function under the required guidelines as produced by the [facility] Finance Committee with regards to the overlapping rooms and will continue to comply with changes to this policy as they occur. The requirements include and are complied with as follows: (1) the critical portions of the overlapping rooms will not occur at the same time, (2) the attending physician will be physically present during the critical portions of the procedure and immediately available during the entire case, and (3) a back-up attending is designated should the primary attending not be immediately available. The patient has had a chance to review all the listed information, has been given print outs detailing this information, and has had all his/her questions answered to their satisfaction. It was my pleasure to have seen and examined Mr. Chambers. In our visit today we have had a chance to go over my understanding of our patient's current condition, the natural course history without intervention and various interventional options. Questions were invited and answered, and the patient wishes to proceed as outlined above. I have seen and examined the patient for 25 minutes and we have spent more than 50% of the time in repeat and detailed coun seling about the patient's condition, its natural course history with out and as much as can be predicted with surgery and re-review of various surgical treatment options. In conclusion, Mr. Chambers requested we proceed with the above suggested surgery and are willing to accept risks and limitations of the suggested surgery as nature of the disease process and our best attempts at treatment for the condition. Thank you again for allowing us to be part of your patient's care. Please don't hesitate to contact me if you have any further questions. Follow- up: Post procedure Patient Education: (Informational booklet, instructions, etc) given at today's appointment: Yes .ED:Patient Education: Y Medications Reviewed: YES In our visit today Mr. Chambers and I have had a chance to go over my understanding of the patient's current condition, the natural course history without intervention and various interventional options. Questions were invited and answered, and the patient wishes to proceed as outlined above. I will be sure to keep you updated afterMr. Chambers returns here for further follow-up. Thank you again for your referral. Please do not hesitate to contact me if you have any further questions. Signed and authenticated by: Boogie Hill DO [facility] Sp[facility] [address] [place] [address] This message is confidential, intended only for the named recipient(s) and may contain information that is privileged or exempt from disclosure under applicable law. If you are not the intended recipient(s), you are notified that the dissemination, distribution or copying of this information is strictly prohibited. If you received this message in error, please notify the sender then delete this message. Patient verbalizes understanding of the information discussed. The above note was initiated by Bianca Covarrubias, physician recording conference assistant for Dr. Boogie Hill. This note has been reviewed by Dr. Hill, who has made his personal changes and impressions for this document. CC: Lina Mayorga M.D. # SIGNED BY Boogie Hill (O)03/02/2023 11:34AM Past Medical History Past Medical History: Chest Pain / Angina, GERD/Reflux, Hyperlipidemia, Hypertension, Musculoskeletal Disorder, Osteoarthritis (OA), Rheumatoid Arthritis (RA) Additional Past Medical History / Comment(s): constant ringing in bilateral ears , neck issues and lower back, migraines History of Any Multi-Drug Resistant Organisms: None Reported Past Surgical History: Back Surgery, Orthopedic Surgery Additional Past Surgical History / Comment(s): Neck fusion, back fusion. Lt knee reconstruction, shoulder, Lt. thumb surgery, pain clinic back injections, botox injections for migraines Past Anesthesia/Blood Transfusion Reactions: No Reported Reaction Smoking Status: Former smoker, Light tobacco smoker - Past Family History Mother Family Medical History: Cancer Additional Family Medical History / Comment(s): breast Medications and Allergies Home Medications Medication Instructions Recorded Confirmed Type Cyclobenzaprine [Flexeril] 10 mg PO TID PRN 05/05/15 03/08/23 History Ibuprofen [Motrin] 800 mg PO TID PRN 05/05/15 03/08/23 History Omeprazole [PriLOSEC] 40 mg PO BID PRN 05/05/15 03/08/23 History Ondansetron HCl [Zofran] 4 mg PO Q8HR PRN 05/05/15 03/08/23 History atenoloL [Tenormin] 25 mg PO DAILY 05/05/15 03/08/23 History lisinopriL [Zestril] 10 mg PO DAILY 05/05/15 03/08/23 History rOPINIRole HCL [Requip] 1 mg PO HS 05/05/15 03/08/23 History traZODone HCL [Desyrel] 100 mg PO HS 05/05/15 03/08/23 History Aspirin 325 mg PO DAILY 07/03/15 03/08/23 History Pseudoephedrine HCl [Sudafed] 60 mg PO Q6HR PRN 07/03/15 03/08/23 History SUMAtriptan succinate [Imitrex] 100 mg PO ONCE PRN 06/10/21 03/08/23 History oxyCODONE-APAP 10-325MG [Percocet 1 tab PO Q6HR PRN 10/07/22 03/08/23 History 10-325 mg] Albuterol Sulfate [Ventolin HFA] 1 inh PO TID PRN 03/08/23 03/08/23 History Amitriptyline HCl [Elavil] 50 mg PO HS 03/08/23 03/08/23 History Fluticasone Propion/Salmeterol 1 inhalation PO DAILY 03/08/23 03/08/23 History [Advair 100-50 Diskus] Multivitamin [Multivitamins Adult 1 tab PO DAILY 03/08/23 03/08/23 History Gummies] Rimegepant Sulfate [Nurtec Odt] 75 mg PO Q2D 03/08/23 03/08/23 History Rosuvastatin [Crestor] 20 mg PO QAM 03/08/23 03/08/23 History Allergies Allergy/AdvReac Type Severity Reaction Status Date / Time No Known Allergies Allergy Verified 03/08/23 10:06 Physical Examination Osteopathic Statement: *. No significant issues noted on an osteopathic structural exam other than those noted in the History and Physical/Consult.
[~2023-03-14 05:34] MED LIST changes: +ACETAMINOPHEN TAB 500 MG TAB PO PRN; +GABAPENTIN 300 MG CAP PO PRN; -LACTATED RINGERS 1,000 ML IV SCH; +ONDANSETRON 4 MG/2 ML VIAL IVP PRN; +TRANEXAMIC 1,000 MG/100ML-NACL 1,000 MG in SALINE 1 100ML.BAG IVPB PRN
[2023-03-14] MEDS: LACTATED RINGERS 1,000 ML IV SCH ×3 (06:30→07:37)
[2023-03-14] MEDS ORDERED: DEXAMETHASONE SOD PHOSPHATE 4 MG/ML 1 ML VIAL IVP ONE (06:49)
[2023-03-14] MEDS ORDERED: MIDAZOLAM 2 MG/2 ML VIAL IV PRN (07:00)
[2023-03-14] MEDS ORDERED: MIDAZOLAM 2 MG/2 ML VIAL IVP ONE (07:01)
[2023-03-14] MEDS ORDERED: PROPOFOL 10 MG/ML 20 ML VIAL IV ONE (07:35)
[2023-03-14] MEDS ORDERED: LIDOCAINE 1% INJ 10MG/ML (20 ML MDV) ONE (07:35)
[2023-03-14] MEDS ORDERED: HYDROmorphone (PF) 1 MG/ML ONE (07:35)
[2023-03-14] MEDS ORDERED: MIDAZOLAM 2 MG/2 ML VIAL ONE (07:35)
[2023-03-14] MEDS ORDERED: fentaNYL (PF) 50 MCG/ML 2 ML AMP ONE (07:35)
[2023-03-14] MEDS ORDERED: TRANEXAMIC 1,000 MG/100ML-NACL PREMIX BAG ONE (07:35)
[2023-03-14] MEDS ORDERED: SUCCINYLCHOLINE CHLORIDE 200 MG/10 ML VIAL IV ONE (07:35)
[2023-03-14] MEDS ORDERED: GLYCOPYRROLATE 0.2 MG/ML 2 ML VIAL ONE (07:35)
[2023-03-14] MEDS ORDERED: KETAMINE HCL IN 0.9 % NACL 50 MG/5 ML SYRINGE ONE (07:35)
[2023-03-14] MEDS ORDERED: NEOSTIGMINE 1 MG/ML 10 ML VIAL ONE (07:35)
[2023-03-14] MEDS ORDERED: ROCURONIUM 10 MG/ML (5 ML VIAL) IV ONE (07:35)
[2023-03-14] MEDS ORDERED: THROMBIN (BOVINE) 5,000 UNIT VIAL TOPICAL ONE ×2 (09:09)
[2023-03-14] MEDS ORDERED: MAG HYDROX/AL HYDROX/SIMETH 30 ML CUP PO PRN (10:25)
[2023-03-14] MEDS ORDERED: SENNOSIDES-DOCUSATE SODIUM 1 EACH TAB PO PRN (10:25)
[2023-03-14] MEDS ORDERED: MAGNESIUM HYDROXIDE 2,400 MG/30 ML CUP PO PRN (10:25)
[2023-03-14] MEDS ORDERED: oxyCODONE-APAP 7.5-325MG 1 EACH TAB PO PRN (10:29)
[2023-03-14] MEDS ORDERED: ceFAZolin 3,000 MG in SODIUM CHLORIDE 0.9% IRRIGATIO 3,000 ML IRRIGATION ONE (11:31)
[2023-03-14] MEDS ORDERED: GELATIN SPONGE,ABSORB (SMALL) 1 EACH SPONGE TOPICAL ONE (11:32)
[2023-03-14] MEDS ORDERED: GENTAMICIN 80 MG in SODIUM CHLORIDE 0.9% IRRIGATIO 3,000 ML IRRIGATION ONE (11:32)
[2023-03-14] MEDS ORDERED: VANCOMYCIN 1,000 MG VIAL MISCELLANE ONE (11:53)
[2023-03-14] MEDS ORDERED: LACTATED RINGERS 1,000 ML IV ONE ×5 (11:56→17:12)
--- NOTE | 2023-03-14 12:14 | XR ---
Intraoperative/procedural fluoroscopic services were provided. Total fluoroscopy time is 51 seconds w ith a total of 9 submitted images to PACS. Please see the operative/procedural note for further detai ls. DAP: 8.5741 Gycm2
[2023-03-14] MEDS: HYDROmorphone 0.5 MG/0.5 ML SYRINGE IVP PRN ×4 (12:56→14:37)
--- NOTE | 2023-03-14 13:08 | P.OP ---
Date of Procedure: 03/14/23 Preoperative Diagnosis: 1. L2-3, L3-4 ASD, SEVERE SPONDYLOSIS WITH STENOSIS 2. L4-5, L5-S1 PSEUDOARTHROSIS 3. LOW BACK PAIN 4. NEUROGENIC CLAUDICATION 5. LE WEAKNESS WITH RADICULOPATHY Postoperative Diagnosis: 1. L2-3, L3-4 ASD, SEVERE SPONDYLOSIS WITH STENOSIS 2. L4-5, L5-S1 PSEUDOARTHROSIS 3. LOW BACK PAIN 4. NEUROGENIC CLAUDICATION 5. LE WEAKNESS WITH RADICULOPATHY 6. DURAL EROSION DUE TO STENOSIS Procedure(s) Performed: 1. L2-3, L3-4 POSTERIOLATERAL AND INTERBODY FUSION (02471, 12628) 2. DURAL REPAIR WITH PATCH GRAFT L4-5 (52744, 84648) 2. L4-5, L5-S1 REVISION POSTERIOLATERAL FUSION (31773G2) 3. L2-3, L3-4, L4-5 LAMINECTOMY, FACETECTOMY AND FORAMINOTOMY (56048, 77373Y9) 4. INSTRUMENTATION L2-PELVIS (47663) 5. ATTACHMENT OF THE CAUDAL END OF SEGMENT TO BONY PELVIS (57626) 6. INSERTION OF BIOMECHANICAL DEVICES L2-3, L3-4 (09149Q8) 7. EXPLORATION OF FUSION L4-5, L5-S1 (42244) 8. USE OF Snipi NAVIGATION FOR SCREW PLACEMENT (50242) Implants: -CATY EVEREST SCREW AND SHANIQUE SYSTEM -GLOBUS RISE CAGES X2 -MAGNATOS, IFACTOR, ARTHROCELL, VENTRIS, AUTOGRAFT Anesthesia: GETA Surgeon: Boogie Hill Registrar Assistant #1: Farida Arzola (Was present from begining of case to second cage placement) Registrar Assistant #2: Ruy Branch (Was present from end of second cage placement to dressing placement) Estimated Blood Loss (ml): 900 IV fluids (ml): 2,600 Urine output (ml): 550 Pathology: none sent Condition: stable Disposition: PACU Indications for Procedure: Mr. Chambers is presenting for evaluation of lumbar pain. It was my pleasure to have seen and examined Mr. Chambers. In our visit today we have had a chance to go over subjective complaints, physical examination findings and treatments including the natural course history without intervention and various interventional options. The patients imaging demonstrates: XRay Lumbar Multiview (AP, Lateral, Flexion, Extension) with AP pelvis; 5 views taken at [facility] on 11/23/22: Moderate spondylitic and degenerative changes with thoracic scoliotic curvature. Multilevel diminished disc height. Hardware present at the L4-L5, L5-S1 levels, with disc height collapse. Multilevel bilateral foraminal stenosis. No acute osseous abnormalities. Pelvis: The visualized sacrum and iliac wings are within normal limits. MRI scancompleted at Outside facility from 09/17/22 of [facility]ine: Impression: 1. Straightening of the normal lumbar lordosis consistent with strain in the appropriate clinical circumstance versus secondary to extensive compressive discopathy as described above. Recommend clinical correlation. 2. L1-2: 23mm broad-based disc herniation effaces the ventral surface of the thecal sac without evidence of central canal or limiting foraminal stenosis. 3. L2-3: 23 millimeter broad-based disc herniation effaces the ventral surface of the thecal sac resulting in mild to moderate left neural foraminal encroachment and left exiting L2 nerve impingement conjunction with facet arthrosis. 4. L3-4: 34 millimeter broad-based disc herniation effaces the ventral surface of the thecal sac resulting in severe right and moderate to severe left neural foraminal encroachment and bilaterally exiting L2 nerve impingement in conjunction with facet arthrosis. Severe canal stenosis is seen. 5. L4-5: 34 millimeter right paracentral disc herniation with focal disc extrusion traveling 12.2 mm and a cranial direction effaces the ventral surface of the thecal sac resulting in severe right and moderate to severe left neural foraminal encroachment and bilateral exiting L4 nerve impingement in conjunction with facet arthrosis. 6. L5-S1: Posterior annular tear is seen within the intravertebral disc. 6-7 mm right paracentral disc herniation effaces the ventral surface of the thecal sac resulting in moderate left neural foraminal encroachment and left exiting L5 nerve impingement in conjunction with facet arthrosis. CT [facility]22 of LumbarSpine: Reviewed with pt L1-S1 spondylosis with stenosis Facet hypertrophy and osteophytosis anterior and posterior centraql and foraminal stenosis no fractures Pseudoarthrosis nostd anteriorly L4-5, L5-S1 On physical exam, Mr. Chambers demonstrates: Patient is currently reporting a burning, aching right lower back pain that radiates to his bilateral hips ongoing for approximately 8 years and worsening over the last 4 months with no known injury or trauma to indicate an exact onset of her symptoms. Patient states that occasionally he has crushing leg pain into the bilateral lower extremities with the right side being worse. He does note occasionally he has numbness and tingling into bilateral lower extremities. He does have a history of 2 spinal fusion performed by Dr. Garcia in 2009, patient is unsure of date. I have explained to the patient that as their condition progresses it will cause further neurological deficits and eventual paralysis. Based on the patients imaging, physical exam, and the rapid progression and disabling nature of their symptoms, at this time I recommend surgery in the form of a: lumbar revision L2- Pelvis Decompression and Fusion I discussed the risk and benefits of this procedure at length with Mr. Chambers. The patient agreed to considered pursuing the procedure abovementioned. Prior to surgery, she should follow up with her PCP (Cardio, ID, IM etc) for clearance. Questions were invited and answered, and the patient wishes to proceed as outlined below. Currently, I am recommendin.lumbar revision L2-Pelvis Decompression and Fusion Description of Procedure: L2-PELVIS REVISION DECOMPRESSION AND FUSION The patient was seen and examined in the preoperative area. All preoperative protocols were followed. Informed consent was obtained, risks and benefits of the procedure were discussed at length. Risks including bleeding infection damage to the surrounding tissue and risk of reoperation were discussed with the patient. Risk of anesthesia up to and including was discussed with the patient. These are outlined in the risk review. They were willing to accept these risks and all the risks of surgery. The patient was given a weight-based dose of antibiotics in the form of 3 g Ancef. The patient was seen and evaluated by the anesthesia team who deemed them fit for surgery. The site was marked, the patient was willing to proceed with the procedure. The patient was transferred to the operative suite by the Department of anesthesia. They were then drifted off to sleep by the department anesthesia and GETA was performed. The patient tolerated this well. Wells catheter was placed by nursing staff, a-traumatically. Once confirmation of lines and ventilation the patient was transferred to a prone Trios spine table very carefully. The head was secured and stable. X Ray confirmed alignment. All bony prominences including wrists, elbows, axilla, chest, hips, and thighs, and feet were padded very well. Special attention was paid to the genitalia, and these were padded accordingly. SCDs were placed on bilateral lower extremities and were connected. Arms were well padded and placed at 90/90 up and out and well padded. Safety strap and tape placed on the patient. Once in position, again we confirmed good ventilation capabilities and that lines were running appropriately. The patients lumbosacral pelvic was then exposed. Hair was removed for incision. 1010s were placed outlining the incision site. Standard alcohol was used to clean the incision site and allowed to dry. C-arm was used to bio-valorie the patient and confirm level for incision which was marked with a skin marker. Operative briefing was performed with all teams and everyone in agreement to proceed. The patient was then prepped and draped in a normal sterile fashion. Timeout was then performed, and all parties agreed with the procedure to be performed. Midline skin incision was then made over the previously bookmarked area and dissection taken down to the lumbosacral fascia which was identified and cleaned with a lim. There was excessive sub-q adipose that was obtrusive and needed to be retracted. Once midline was identified, fasciotomy was made over the SP of L1-S1 and pelvis. Subperiosteal dissection was then taken down over the lamina and facet joints and TPs were exposed and trough made posterolateral. TPs were then decorticated with a high speed mohinder for lateral fusion. Dissection was taken out over the sacrum to the pelvis. SI joint identified and modified Fu starting point for pelvic screws identified as well. Retractors placed. Wound was irrigated and lateral image with penfield 4 placed at the pars of L4 confirmed levels for operation. SP clamp was then placed for the [employer] navigation tracker and secured. The wound was then filled with NSS and Z-drape. A 3D Ziehm spin was then obtained and registered. Once confirmation of accuracy screws were then placed from L2-Pelvis using navigation. Navigated high speed mohinder was used to make a towing pilot hole followed by a navigated awl-tap passed through the pedicle into the body. A ball tip probe then confirmed within the pedicle. Screw was then measured and placed using a navigated screwdriver. After screws were placed from L2-S1, AP image confirmed safe placement of screws. Biilateral pelvic screws were then placed using navigation as well, Starting point selected just lateral to the SI joint and S2 pseudo facet. Lateral image taken and mohinder used to make the towing pilot hole. Navigated awl tap then used to pass into the pelvis under lateral imaging just above the sciatic notch. ball tip probe used to probe good bone. Screw was then measured and selected and placed using navigation. This was repeated on the contralateral side. Screws were then visualized and appeared safe. Screws were then tested, and reliably tested screws tested above 18 mA. There was an issue with IONM that precluded all screws from being successfully tested at the time. We then proceeded to decompression and interbody placement. Starting at L2-3, bilateral laminectomy, complete facetectomy and foraminotomies were performed using high speed bur, Kerrison rongeur. There was exuberant bone formation, osteophytes and scar tissue surrounding these joints as well as the dura. Once exposed the neural elements were protected and Osteotome was used to make osteotomy in L2 and L3 and for complete disc removal. This was passed into the anterior 1/3 of L5. This allowed for loosening of this level and correction. A cage was then selected based on shaving and trials. Bleeding endplates were encountered and cartilage removed. Autograft, allograft were then placed anterior to the cage. The cage was then impacted into place under lateral imaging while protecting neural elements. The cage was then expanded into position and showed good lift and correction. Taoist of lordosis and height achieved. Meticulous hemostasis then performed. Cage was backfilled with DBM and the area irrigated. We then proceeded to L3-4. At L3-4, bilateral laminectomy, complete facetectomy and foraminotomy was performed as described above. Again, exuberant scar tissue and bone formation was encountered and at this level which was evident as there was bone growing into dural tissue which was identified and cleaned. There was dural tear midline here at L3-4, L4-5 region and this was promptly repaired with 6-0 prolene. Valsalva to 40 mmHg was then done and there was no leak. Subcutaneous fat graft was then harvested and sewn into the dura as well as a patch graft in this area. Once this was accomplished we turned back to disc prep. There was also a large disc osteophyte complex that was identified once disc space was found. The dura was carefully dissected off this anteriorly and b/l. Once encountered, the disc space was then accessed in a similar fashion and neural elements protected. Once completed and complete discectomy performed there was good mobility at this level. Cage was then sized and selected. Autograft and allograft was then placed anterior in the disc space and the cage was then inserted and impacted into place under lateral. AP image, as before, was taken to ensure midline placement. The cage was then expanded into position. During expansion, the cage seemed to fail to expand completely on the RHS. The LHS expanded very well and recreated height and lordosis. The cage was tested and was very stable and since it was in safe position without any other issues it was elected to keep the cage in position. The wound was irrigated. Meticulous hemostasis then performed, and attention turned to L3-4. At L4-5 and L5-S1 the fusion was explored. There was little no no posteriorlateral fusion in this area and facet joints were still patent. They were then burred to allow for fusion posteriolateral. Attention was then drawn to shanique placement. Rods were selected, measured, cut and bent to appropriate lordosis. They were then secured into pelvic screws b/l. Sequential reduction then done into each screw and set screw placed. Set screws were then final tightened and lateral image showed good lordosis reduction with increase around 10 deg from starting. Once rods were secured, cross links were selected and placed and final tightened. The wound was then irrigated with 3L Ancef irrigation, 3L gentamicin irrigation and 3L NSS. Tisseal was then placed over the dura followed by Surgicel was then placed on the dura, valsalva was done again and there was no ongoing leak. Then, in the posterolateral gutter was placed, MagnatOs, Autograft and allograft. This was impacted into position and surgical placed over it. 2g Vanco powder was then placed deep in the wound. A deep, subfascial drain was placed and a superficial facial drain placed. We then proceeded with layered closure. #1 PDS placed in the deep fascia. 0 Vicryl placed in the deep subq, 2-0 placed in the superficial subq and zonia placed in the skin. The wound edges approximated very well. The wound was then cleaned with ETOH and dressed with optifoam dressing, drain sponges and tegaderms. Drains sewed into position. IONM confirmed no changes. The patient was then transferred off the [facility] spine table to their hospital bed a-traumatically. Drains continued to hold suction. The patient was then extubated and transferred to the ICU in stable condition having tolerated the procedure with no complications.
--- NOTE | 2023-03-14 13:23 | P.ANPRN ---
Procedure Note - Anesthesia - Invasive Line Left Arterial Line Time Out Performed: Yes (700) Date of Procedure: 03/14/23 Time of Procedure: 07:20 Location of Patient: PreOp Preparation: Sterile Prep, Sterile Dressing Arterial Line Location: Radial (left) Ultrasound Used: Yes Purpose - Visualization and Identification of Vasculature: Yes Needle Guage: 20g Image Stored and Saved: Yes Narrative: Central line placement per sterile protocol utilized. sterile protocol. +local +US
[2023-03-14] MEDS ORDERED: HYDROmorphone 0.5 MG/0.5 ML SYRINGE IVP ONE ×3 (15:30→17:02)
[2023-03-14] MEDS ORDERED: PSEUDOEPHEDRINE 30 MG TAB PO PRN (16:03)
[2023-03-14] MEDS ORDERED: PANTOPRAZOLE 40 MG TABLET PO PRN (16:03)
[2023-03-14] MEDS ORDERED: ALBUTEROL NEBULIZED 2.5 MG/3 ML INHALATION PRN (16:03)
[2023-03-14] MEDS: ACETAMINOPHEN TAB 325 MG TAB PO SCH ×3 (18:43→23:04)
[2023-03-14] MEDS: GABAPENTIN 300 MG CAP PO SCH ×2 (18:44→21:09)
[2023-03-14] MEDS: CYCLOBENZAPRINE 10 MG TAB PO PRN (18:57)
[2023-03-14] MEDS: HYDROmorphone 1 MG/ML 1 ML SYRINGE IVP PRN ×2 (18:57→23:04)
--- NOTE | 2023-03-14 21:05 | CONS ---
CONSULTATION REASON FOR CONSULTATION: Advice regarding hypertension, hyperlipidemia, and other medical issues, requested by Orthopedic Surgery. HISTORY OF PRESENT ILLNESS: This is a 63-year-old gentleman with a past medical history of hypertension and hyperlipidemia, followed by in the outpatient setting, who is admitted after L2 to L4 lumbar fusion and revision and laminectomy. There is no history of any fever, rigor, or chills. No history of headache, loss of consciousness, or seizures. PAST MEDICAL HISTORY: GERD, hypertension, and hyperlipidemia. Rest of the history and rest of the chart are also reviewed. HOME MEDICATIONS: Reviewed include Requip. Doses and rest of the medications are reviewed. ALLERGIES: None. FAMILY HISTORY: History of cancer in the family. SOCIAL HISTORY: Quit smoking and THC. REVIEW OF SYSTEMS: Fourteen-point review is negative except as mentioned earlier. PHYSICAL EXAMINATION: VITAL SIGNS: Pulse is 63, blood pressure 155/90, respirations 18. HEENT: Conjunctivae are normal. NECK: No jugular venous distention. CARDIOVASCULAR: S1 and S2 muffled. RESPIRATORY: Few scattered rhonchi. ABDOMEN: Soft and nontender. NERVOUS SYSTEM: No focal deficits. SKIN: No ulcers or rashes. JOINTS: No active deforming arthropathy. BACK: n LABORATORY DATA: Not available. ASSESSMENT: 1. Status post L2 to L4 lumbar fusion and revision and laminectomy. 2. Hypertension. 3. Hyperlipidemia. 4. Gastroesophageal reflux disease. 5. History of rheumatoid arthritis. RECOMMENDATIONS AND DISCUSSION: This is a 63-year-old gentleman, who presented after surgery. At this time, I recommend to continue with current medical management. Continue symptomatic treatment. Resume the home medications once they are confirmed. Otherwise, I would recommend DVT prophylaxis and incentive spirometry. We will follow the patient closely with you. MMODL / IJN: [id number] / PRITI
[2023-03-14] MEDS: AMITRIPTYLINE HCL 50 MG TAB PO SCH (21:09)
[2023-03-14] MEDS: oxyCODONE-APAP 10-325MG 1 EACH TAB PO PRN (21:09)
[2023-03-14] MEDS: traZODone HCL 100 MG TAB PO SCH (21:09)
[2023-03-14] MEDS: SYMBICORT 80-4.5 MCG INHALER INHALATION SCH (21:46)
--- NOTE | 2023-03-15 00:59 | P.CONS ---
History of Present Illness - Reason for Consult Consult date: 03/14/23 - History of Present Illness Patient is a 63-year-old male with a PMH of hyperlipidemia, hypertension, and asthma who was admitted for an elective lumbosacral fusion and laminectomy. The patient underwent the procedure earlier today and was seen postoperatively on the surgical unit. He reported ongoing lower back pain rated at a 7 out of 10. Denied any additional complaints. Denied experiencing chest discomfort, sore throat, fever, chills, cough, nausea, vomiting, abdominal pain, diarrhea. Reports compliance with all his home medications. Review of systems: Pertinent positives and negatives as discussed in HPI, a complete review of systems was performed and all other systems are negative. Physical examination: Vital signs reviewed General: non toxic, no distress, appears at stated age, normal weight Derm: no unusual rashes/lesions, warm Head: atraumatic, normocephalic, symmetric Eyes: EOMI, no lid lag, anicteric sclera, pupils equal round reactive to light ENT: Nose and ears atraumatic Neck: No cervical lymphadenopathy, trachea midline, supple Mouth: no lip lesion, mucus membranes moist Cardiovascular: S1S2 reg, no murmur, positive dorsalis pedis pulse bilateral, no edema Lungs: CTA bilateral, no rhonchi, no rales, no accessory muscle use Abdominal: soft, nontender to palpation, no guarding Ext: muscle strength 5 out of 5 in bilateral upper extremities and distal lower extremities, no gross muscle atrophy, no contractures, Neuro: CN II-XI grossly intact, no gross focal neuro deficits Psych: Alert, oriented, appropriate affect Assessment: Chronic conditions: Hypertension, hyperlipidemia, asthma Status post lumbar sacral fusion and laminectomy Plan: Continue with home medications Defer management of pain control and DVT prophylaxis to the primary surgery service We appreciate this opportunity to be involved in this patient's care. We will follow the patient with you. For any further questions, please not hesitate to contact the sound inpatient team. Past Medical History Past Medical History: Chest Pain / Angina, GERD/Reflux, Hyperlipidemia, Hypertension, Musculoskeletal Disorder, Osteoarthritis (OA), Rheumatoid Arthritis (RA) Additional Past Medical History / Comment(s): constant ringing in bilateral ears , neck issues and lower back, migraines History of Any Multi-Drug Resistant Organisms: None Reported Past Surgical History: Back Surgery, Orthopedic Surgery Additional Past Surgical History / Comment(s): Neck fusion, back fusion. Lt knee reconstruction, shoulder, Lt. thumb surgery, pain clinic back injections, botox injections for migraines Past Anesthesia/Blood Transfusion Reactions: No Reported Reaction Smoking Status: Former smoker, Light tobacco smoker - Past Family History Mother Family Medical History: Cancer Additional Family Medical History / Comment(s): breast Medications and Allergies Home Medications Medication Instructions Recorded Confirmed Type Cyclobenzaprine [Flexeril] 10 mg PO TID PRN 05/05/15 03/14/23 History Ibuprofen [Motrin] 800 mg PO TID PRN 05/05/15 03/14/23 History Omeprazole [PriLOSEC] 40 mg PO BID PRN 05/05/15 03/14/23 History Ondansetron HCl [Zofran] 4 mg PO Q8HR PRN 05/05/15 03/14/23 History atenoloL [Tenormin] 25 mg PO DAILY 05/05/15 03/14/23 History lisinopriL [Zestril] 10 mg PO DAILY 05/05/15 03/14/23 History rOPINIRole HCL [Requip] 1 mg PO HS 05/05/15 03/14/23 History traZODone HCL [Desyrel] 100 mg PO HS 05/05/15 03/14/23 History Aspirin 325 mg PO DAILY 07/03/15 03/14/23 History Pseudoephedrine HCl [Sudafed] 60 mg PO Q6HR PRN 07/03/15 03/14/23 History SUMAtriptan succinate [Imitrex] 100 mg PO ONCE PRN 06/10/21 03/14/23 History oxyCODONE-APAP 10-325MG [Percocet 1 tab PO Q6HR PRN 10/07/22 03/14/23 History 10-325 mg] Albuterol Sulfate [Ventolin HFA] 1 inh PO TID PRN 03/08/23 03/14/23 History Amitriptyline HCl [Elavil] 50 mg PO HS 03/08/23 03/14/23 History Fluticasone Propion/Salmeterol 1 inhalation PO DAILY 03/08/23 03/14/23 History [Advair 100-50 Diskus] Multivitamin [Multivitamins Adult 1 tab PO DAILY 03/08/23 03/14/23 History Gummies] Rimegepant Sulfate [Nurtec Odt] 75 mg PO Q2D 03/08/23 03/14/23 History Rosuvastatin [Crestor] 20 mg PO QAM 03/08/23 03/14/23 History Allergies Allergy/AdvReac Type Severity Reaction Status Date / Time No Known Allergies Allergy Verified 03/14/23 06:06 Physical Exam Vitals: Vital Signs Temp Pulse Pulse Resp BP Pulse Ox 03/14/23 20:00 95 159/86 96 03/14/23 19:45 78 146/94 95 03/14/23 19:30 90 156/95 98 03/14/23 19:15 92 141/87 96 03/14/23 19:00 99 136/89 94 L 03/14/23 18:45 86 137/90 97 03/14/23 18:30 98 147/90 99 03/14/23 18:15 94 142/88 98 03/14/23 18:00 91 152/92 97 03/14/23 17:18 70 16 145/80 100 03/14/23 16:45 94 16 148/54 99 03/14/23 15:45 93 16 140/89 98 03/14/23 15:15 98 F 87 16 144/84 93 L 03/14/23 14:45 63 16 155/91 99 03/14/23 14:09 99 16 153/89 98 03/14/23 13:54 100 16 152/80 99 03/14/23 13:39 85 18 153/89 98 03/14/23 13:24 97 16 152/81 98 03/14/23 13:08 97 16 147/87 99 03/14/23 12:53 94 16 152/87 94 L 03/14/23 12:38 97 F L 97 14 143/84 97 03/14/23 06:14 97.3 F L 72 16 146/86 98 Intake and Output 03/14/23 03/14/23 03/15/23 14:59 22:59 06:59 Intake Total 2952 950 Output Total 1200 Balance 1752 950 Intake: IV 2952 950 Output: Urine 400 Estimated Blood Loss 800 Other: Voiding Method Indwelling Catheter Weight 88.3 kg
[2023-03-15] MEDS: HYDROmorphone 1 MG/ML 1 ML SYRINGE IVP PRN ×7 (02:05→22:01)
[2023-03-15] MEDS: ACETAMINOPHEN TAB 325 MG TAB PO SCH ×3 (05:00→18:14)
--- NOTE | 2023-03-15 07:00 | P.PN ---
Subjective Progress Note Date: 03/15/23 Principal diagnosis: 1. L2-L3, L3-L4 adjacent segment disease, severe spondylosis with stenosis 2. L4-L5, L5-S1 pseudoarthrosis 3. Low back pain 4. Neurogenic claudication 5. Bilateral lower extremity weakness with radiculopathy Patient seen and examined this morning. Patient is resting comfortably in bed. Discussed with patient due to a dural tear during procedure due to severe stenosis that the head of bed may be slightly raised, no greater than 10 at this time. Discussed with patient that we may start raising head of bed later this afternoon. Patient verbalized understanding. Surgical incision to the lumbar spine, Hemovac is present to the right of the incision. Hemovac is to have no compression and open to gravity. Patient reports his pain is managed on current regimen. Encouraged patient to utilize incentive spirometer. Mercado catheter is maintained at this time. Patient denies any acute concerns. Objective - Vital Signs Vital signs: Vital Signs Temp 99.1 F 03/15/23 01:31 Pulse 106 H 03/15/23 01:31 Resp 18 03/15/23 01:31 BP 144/82 03/15/23 01:31 Pulse Ox 96 03/15/23 01:31 FiO2 Intake & Output 03/14/23 03/14/23 03/15/23 06:59 18:59 06:59 Intake Total 3902 Output Total 1200 120 Balance 2702 -120 Weight 88.3 kg 88.3 kg Intake: IV 3902 Output: Drainage 120 Back 120 Urine 400 Estimated Blood Loss 800 Other: Voiding Method Indwelling Catheter - Exam Physical Examination General: The patient is awake and alert, in no acute distress Skin: Skin is warm and dry with no obvious rashes or lesions. Surgical incision to the lumbar spine, dressing is clean dry and intact with Hemovac present at the right of the incision, no compression to drain open to gravity. Eye: Pupils are equal, round and reactive to light, extra-ocular movements are intact; there is normal conjunctiva bilaterally. Neck: The neck is supple, there is no tenderness and ROM intact. Cardiovascular: There is a regular rate and rhythm. No murmur, rub or gallop is appreciated. Respiratory: Lungs are clear to auscultation, respirations are non-labored, breath sounds are equal. Gastrointestinal: Soft, non-distended, non-tender abdomen. Back: There is no tenderness to palpation in the midline, paralumbar, parathoracic or buttocks region. There is no obvious deformity . Musculoskeletal: ROM limited secondary to pain and stiffness from surgical pr ocedure. Muscle strength in all major muscle groups of bilateral upper extremities 5/5, bilateral lower extremities 4/5. Neurological: CN 2-12 intact. There are no obvious motor or sensory deficits. Movement and coordination equal and intact. Sensory exam to light touch intact C5-T1 and intact from L2-S1. Reflexes 2/4 in bilateral upper and lower extremities. Negative Hoffmans, babinski, and clonus signs. Psychiatric: Cooperative, appropriate mood & affect, normal judgment. Assessment and Plan Assessment: Postop day 1: Revision [id number] decompression and fusion 1. L2-L3, L3-L4 adjacent segment disease, severe spondylosis with stenosis 2. L4-L5, L5-S1 pseudoarthrosis 3. Low back pain 4. Neurogenic claudication 5. Bilateral lower extremity weakness with radiculopathy Plan: -Appreciate retail wireless sales consultant and team management. -Activity: Patient is to remain with head of bed less than 10 at this time -Pain control: Adequate at this time -Meds: reviewed -GI ppx: senna, Miralax -DC mercado when up and about, bedside commode if needed -DVT PPX: Heparin -Hygiene: Shower today. Maintain dressing clean and dry. Meticulous cleaning after BMs away from the incision site -Drains: Maintain for now to gravity, no compression. Continue to monitor and record output q shift. -Encourage IS 10x/hr -Dispo: Clinically pending *I reviewed and discussed this case with my attending Dr. Hill, whom has reviewed this chart and films and is in agreement with assessment and plan of care as outlined above. I have personally seen and examined the patient, performed the documentation and the assessment and plan as written. Number of minutes spent on the visit: 20m.
[2023-03-15] MEDS: SYMBICORT 80-4.5 MCG INHALER INHALATION SCH ×2 (07:45→22:08)
--- NOTE | 2023-03-15 08:19 | CT ---
EXAMINATION TYPE: CT lumbar spine wo con DATE OF EXAM: 03/15/2023 COMPARISON: 11/25/2022 HISTORY: s/p revision L2-pelvis decompr fusion Unenhanced CT of the lumbar spine was performed. Bone and soft tissue window settings are submitted as well as coronal and sagittal reconstructions. L1-L2: Mild degenerative change with posterior disc bulge. Facet joint arthropathy. Soft tissue air c ompatible with recent surgical intervention. L2-L3: Postsurgical change of decompressive laminectomy. Intervertebral body spacer. Postoperative al ignment within normal limits. Postsurgical changes seen. Surgical drain noted. L3-L4: Postsurgical change of decompressive laminectomy. Intervertebral body spacer. Postoperative al ignment within normal limits. Postsurgical changes seen. L4-L5: Postsurgical change of decompressive laminectomy. Intervertebral body spacer. Postoperative al ignment within normal limits. Postsurgical changes seen. L5-S1: Postsurgical change of decompressive laminectomy. Intervertebral body spacer. Postoperative al ignment within normal limits. Postsurgical changes seen. No paraspinal masses are identified. Lumbar segments are free if fracture. IMPRESSION: 1. Postoperative changes as discussed with postoperative alignment appears near-anatomic. Postsurgica l soft tissue changes.
[2023-03-15] MEDS: MULTIVITAMINS, THERA 1 EACH TAB PO SCH (08:24)
[2023-03-15] MEDS: GABAPENTIN 300 MG CAP PO SCH ×3 (08:24→22:01)
[2023-03-15] MEDS: lisinopriL 10 MG TAB PO SCH (08:24)
[2023-03-15] MEDS: ATORVASTATIN 40 MG TAB PO SCH (08:24)
[2023-03-15] MEDS: atenoloL 25 MG TAB PO SCH (08:24)
[2023-03-15 08:45] LABS: Basophils # (A) 0.04 X 10*3/uL (0.00-0.10); Basophils % (A) 0.3 %; Eosinophils # (A) 0.09 X 10*3/uL (0.04-0.35); Eosinophils % (A) 0.7 %; HCT 27.4 % (39.6-50.0); HGB 9.4 g/dL (13.0-17.0); MCH 32.2 pg (27.0-32.0); MCHC 34.3 g/dL (32.0-37.0); MCV 93.8 FL (80.0-97.0); Mean Platelet Volume 10.6 FL (9.5-12.2); Monocytes # (A) 1.28 X 10*3/uL (0.20-1.00); NRBC Per 100 WBC 0 X 10*3/uL (0.00-0.01); Neutrophils # (A) 9.55 X 10*3/uL (1.80-7.70); Neutrophils % (A) 74.5 %; Platelet Count 209 X 10*3/uL (140-440); RBC 2.92 X 10*6/uL (4.40-5.60); WBC 12.83 X 10*3/uL (4.50-10.00)
[2023-03-15 08:54] LABS: BUN/Creat Ratio 13.75 Ratio (12.00-20.00); Calcium 8.4 mg/dL (8.7-10.3); Carbon Dioxide 25.5 mmol/L (21.6-31.8); Chloride 106 mmol/L (96-109); Glucose 126 mg/dL (70-110); Potassium 3.7 mmol/L (3.5-5.5); Sodium 140 mmol/L (135-145)
[2023-03-15] MEDS ORDERED: BUTALB/APAP/CAFF 50-325-40MG TAB PO PRN (12:39)
--- NOTE | 2023-03-15 15:23 | PN ---
PROGRESS NOTE SUBJECTIVE: This is a 63-year-old gentleman, who was admitted after back surgery, also had hypertension and hyperlipidemia. No chest pain. No palpitations. No fever. PHYSICAL EXAMINATION: VITAL SIGNS: Pulse is 87, blood pressure 135/85, respirations 18. CHEST: Clear to auscultation. CARDIOVASCULAR: S1 and S2 muffled. ABDOMEN: Soft. NERVOUS SYSTEM: Nonfocal. LABORATORY DATA: WBC 12.83. ASSESSMENT: 1. Status post L2 to L4 lumbar fusion and revision and laminectomy. 2. Elevated WBC, possibly reactive. 3. Hypertension. 4. Hyperlipidemia. 5. Gastroesophageal reflux disease. 6. History of rheumatoid arthritis. RECOMMENDATIONS: Recommend to continue current medical management. Continue symptomatic treatment. Closely follow with Orthopedic Surgery. DVT prophylaxis. See orders for the details. Further recommendations to follow. UA with micro. MMODL / IJN: [id number] /
[2023-03-15] MEDS: oxyCODONE-APAP 10-325MG 1 EACH TAB PO PRN (15:53)
[2023-03-15] MEDS: CYCLOBENZAPRINE 10 MG TAB PO PRN (15:54)
[2023-03-15 20:10] LABS: Mucus,Urine Rare /hpf; RBC,Urine 1 /hpf (0-5); WBC,Urine 2 /hpf (0-5)
[2023-03-15 20:13] LABS: Appearance,Urine Slightly Cloudy (Clear); Bilirubin,Urine Negative (Negative); Blood,Urine Negative (Negative); Color,Urine Yellow; Glucose,Urine (UA) Negative (Negative); Ketones,Urine Negative (Negative); Leukocyte Esterase,Urine Negative (Negative); Nitrite,Urine Negative (Negative); PH, Urine 7.5 (5.0-8.0); Protein,Urine Negative (Negative); Specific Gravity,Urine 1.011 (1.001-1.035); Urobilinogen,Urine <2.0 mg/dL (<2.0)
[2023-03-15] MEDS: HEPARIN SODIUM,PORCINE 5,000 UNIT/ML 1 ML VIAL SQ SCH (22:01)
[2023-03-15] MEDS: AMITRIPTYLINE HCL 50 MG TAB PO SCH (22:01)
[2023-03-15] MEDS: traZODone HCL 100 MG TAB PO SCH (22:01)
[2023-03-16] MEDS: ACETAMINOPHEN TAB 325 MG TAB PO SCH ×4 (01:03→17:14)
[2023-03-16] MEDS: HYDROmorphone 1 MG/ML 1 ML SYRINGE IVP PRN ×4 (01:04→17:15)
[2023-03-16] MEDS: LACTATED RINGERS 1,000 ML IV SCH (06:12)
--- NOTE | 2023-03-16 08:41 | P.PN ---
Subjective Progress Note Date: 03/16/23 Principal diagnosis: 1. L2-L3, L3-L4 adjacent segment disease, severe spondylosis with stenosis 2. L4-L5, L5-S1 pseudoarthrosis 3. Low back pain 4. Neurogenic claudication 5. Bilateral lower extremity weakness with radiculopathy Patient seen and examined this morning. Patient is resting comfortably in bed. Patient remains with HOB no greater than 10 degrees at this time. Patient is currently denying any headaches, dizziness, nausea, or blurred vision. After breakfast HOB can start to be raised by 10 degrees every hour as long as no symptoms present; goal is to attempt to sit patient at bedside by this afte rnoon. Surgical incision to the lumbar spine, Hemovac is present to the right of the incision. Hemovac is to have no compression and open to gravity. This will be removed this afternoon. Patient reports his pain is managed on current regimen. Encouraged patient to utilize incentive spirometer. Mercado catheter is maintained at this time. Patient denies any acute concerns. Objective - Vital Signs Vital signs: Vital Signs Temp 98.3 F 03/16/23 01:06 Pulse 92 03/16/23 01:06 Resp 19 03/16/23 01:06 BP 125/79 03/16/23 01:06 Pulse Ox 95 03/16/23 01:06 FiO2 Intake & Output 03/15/23 03/16/23 03/16/23 18:59 06:59 18:59 Output Total 2300 560 Balance -2300 -560 Output: Drainage 50 60 Back 50 60 Urine 2250 500 Other: Voiding Method Indwelling Catheter - Exam Physical Examination General: The patient is awake and alert, in no acute distress Skin: Skin is warm and dry with no obvious rashes or lesions. Surgical incision to the lumbar spine, dressing is clean dry and intact with Hemovac present at the right of the incision, no compression to drain open to gravity. Eye: Pupils are equal, round and reactive to light, extra-ocular movements are intact; there is normal conjunctiva bilaterally. Neck: The neck is supple, there is no tenderness and ROM intact. Cardiovascular: There is a regular rate and rhythm. No murmur, rub or gallop is appreciated. Respiratory: Lungs are clear to auscultation, respirations are non-labored, breath sounds are equal. Gastrointestinal: Soft, non-distended, non-tender abdomen. Back: There is no tenderness to palpation in the midline, paralumbar, parathoracic or buttocks region. There is no obvious deformity . Musculoskeletal: ROM limited secondary to pain and stiffness from surgical procedure. Muscle strength in all major muscle groups of bilateral upper extremities 5/5, bilateral lower extremities 4/5. Neurological: CN 2-12 intact. There are no obvious motor or sensory deficits. Movement and coordination equal and intact. Sensory exam to light touch intact C5-T1 and intact from L2-S1. Reflexes 2/4 in bilateral upper and lower extremities. Negative Hoffmans, babinski, and clonus signs. Psychiatric: Cooperative, appropriate mood & affect, normal judgment. - Labs CBC & Chem 7: 03/15/23 05:33 03/15/23 05:33 Labs: Abnormal Lab Results - Last 24 Hours (Table) 03/15/23 03/15/23 03/15/23 Range/Units 05:33 05:33 19:45 WBC 12.83 H (4.50-10.00) X 10*3/uL RBC 2.92 L (4.40-5.60) X 10*6/uL Hgb 9.4 L (13.0-17.0) g/dL Hct 27.4 L (39.6-50.0) % MCH 32.2 H (27.0-32.0) pg Neutrophils # 9.55 H (1.80-7.70) X 10*3/uL Monocytes # 1.28 H (0.20-1.00) X 10*3/uL Glucose 126 H (70-110) mg/dL Calcium 8.4 L (8.7-10.3) mg/dL Urine Mucus Rare H (None) /hpf Assessment and Plan Assessment: Postop day 2: Revision [id number] decompression and fusion 1. L2-L3, L3-L4 adjacent segment disease, severe spondylosis with stenosis 2. L4-L5, L5-S1 pseudoarthrosis 3. Low back pain 4. Neurogenic claudication 5. Bilateral lower extremity weakness with radiculopathy Plan: -Appreciate library consultant and team management. -Activity: Patient is to remain with head of bed less than 10 at this time, After breakfast HOB can start to be raised by 10 degrees every hour as long as no symptoms present; goal is to attempt to sit patient at bedside by this afternoon. -Pain control: Adequate at this time -Meds: reviewed -GI ppx: senna, Miralax -DC mercado when up and about, bedside commode if needed -DVT PPX: Heparin -Hygiene: Shower today. Maintain dressing clean and dry. Meticulous cleaning after BMs away from the incision site -Drains: Maintain for now to gravity, no compression. Drain will be removed this afternoon -Encourage IS 10x/hr -Dispo: Clinically pending *I reviewed and discussed this case with my attending Dr. Hill, whom has reviewed this chart and films and is in agreement with assessment and plan of care as outlined above. I have personally seen and examined the patient, performed the documentation and the assessment and plan as written. Number of minutes spent on the visit: 20m.
[2023-03-16] MEDS: SYMBICORT 80-4.5 MCG INHALER INHALATION SCH ×2 (08:54→21:30)
[2023-03-16] MEDS: atenoloL 25 MG TAB PO SCH (10:48)
[2023-03-16] MEDS: lisinopriL 10 MG TAB PO SCH (10:48)
[2023-03-16] MEDS: HEPARIN SODIUM,PORCINE 5,000 UNIT/ML 1 ML VIAL SQ SCH ×2 (10:48→20:31)
[2023-03-16] MEDS: MULTIVITAMINS, THERA 1 EACH TAB PO SCH (10:48)
[2023-03-16] MEDS: ATORVASTATIN 40 MG TAB PO SCH (10:48)
[2023-03-16] MEDS: GABAPENTIN 300 MG CAP PO SCH ×3 (10:48→20:31)
[2023-03-16] MEDS: oxyCODONE-APAP 10-325MG 1 EACH TAB PO PRN (10:51)
[2023-03-16] MEDS: CYCLOBENZAPRINE 10 MG TAB PO PRN (10:52)
[2023-03-16 11:07] LABS: Basophils % (A) 0 %; Eosinophils # (A) 0.2 k/uL (0-0.7); Eosinophils % (A) 1 %; HCT 32.7 % (39.0-53.0); HGB 11.1 gm/dL (13.0-17.5); Lymphocytes # (A) 1.3 k/uL (1.0-4.8); Lymphocytes % (A) 10 %; MCH 33.3 pg (25.0-35.0); Mean Platelet Volume 8.2; Monocytes # (A) 0.7 k/uL (0-1.0); Monocytes % (A) 5 %; Neutrophils # (A) 10.9 k/uL (1.3-7.7); Neutrophils % (A) 82 %; Platelet Count 240 k/uL (150-450); RBC 3.34 m/uL (4.30-5.90); RDW 12.3 % (11.5-15.5); WBC 13.3 k/uL (3.8-10.6)
--- NOTE | 2023-03-16 13:38 | PN ---
PROGRESS NOTE DATE OF SERVICE: 03/16/2023 SUBJECTIVE: This is a 63-year-old gentleman, who was admitted after L2 through L4 lumbar fusion and revision and laminectomy. He is improving significantly. No chest pain. No palpitations. No fever. PHYSICAL EXAMINATION: VITAL SIGNS: Pulse 101, blood pressure 149/75, respirations 18. CHEST: Clear to auscultation. CARDIOVASCULAR: S1 and S2 muffled. ABDOMEN: Soft. NERVOUS SYSTEM: Nonfocal. LABORATORY DATA: WBC 13.3. ASSESSMENT: 1. Status post L2 through L4 lumbar fusion with revision and laminectomy. 2. Elevated WBC, possibly reactive, improving. 3. Hypertension. 4. Hyperlipidemia. 5. History of gastroesophageal reflux disease. 6. History of rheumatoid arthritis. RECOMMENDATIONS: Recommend to continue current medical management. Continue symptomatic treatment. Otherwise, closely follow with Orthopedic Surgery. DVT prophylaxis. Incentive spirometry. Further recommendations to follow. MMODL / IJN: [id number] /
[2023-03-16] MEDS: traZODone HCL 100 MG TAB PO SCH (20:31)
[2023-03-16] MEDS: HYDROmorphone 0.5 MG/0.5 ML SYRINGE IVP PRN (20:31)
[2023-03-16] MEDS: AMITRIPTYLINE HCL 50 MG TAB PO SCH (20:31)
[2023-03-17] MEDS: ACETAMINOPHEN TAB 325 MG TAB PO SCH ×2 (00:59→05:30)
[2023-03-17] MEDS: HYDROmorphone 0.5 MG/0.5 ML SYRINGE IVP PRN (05:30)
[2023-03-17] MEDS: LACTATED RINGERS 1,000 ML IV SCH (06:12)
--- NOTE | 2023-03-17 08:31 | P.PN ---
Subjective Progress Note Date: 03/17/23 Principal diagnosis: 1. L2-L3, L3-L4 adjacent segment disease, severe spondylosis with stenosis 2. L4-L5, L5-S1 pseudoarthrosis 3. Low back pain 4. Neurogenic claudication 5. Bilateral lower extremity weakness with radiculopathy Patient seen and examined this morning. Patient is resting comfortably in bed. He does report that he sat up in the chair for a few hours yesterday and tolerated well. Patient does have complaints of headache, although he states this is a chronic issue that he receives Botox injections for. Surgical in cision of the lumbar spine is well approximated with zonia intact. Hemovac drain has been removed, new surgical dressing applied. Patient is to work with physical therapy today, pending evaluation patient may be discharged home with home care later today. Patient did have a low-grade fever overnight, encourage patient to use incentive spirometer and to be up in chair with all meals. He does report that his pain is managed on current regimen. Prescription for LSO brace has been placed in chart. No acute concerns. Objective - Vital Signs Vital signs: Vital Signs Temp 100.7 F H 03/17/23 00:18 Pulse 108 H 03/17/23 00:18 Resp 20 03/17/23 00:18 BP 102/65 03/17/23 00:18 Pulse Ox 90 L 03/17/23 00:18 FiO2 Intake & Output 03/16/23 03/16/23 03/17/23 06:59 18:59 06:59 Output Total 560 2360 380 Balance -560 -2360 -380 Output: Drainage 60 60 80 Back 60 60 80 Urine 500 2300 300 Uretheral (Wells) 100 Other: Voiding Method Indwelling Catheter Indwelling Catheter Indwelling Catheter - Exam Physical Examination General: The patient is awake and alert, in no acute distress Skin: Skin is warm and dry with no obvious rashes or lesions. Surgical incision to the lumbar spine, edges are well approximated with zonia intact. No active drainage. Hemovac drain has been removed and new surgical dressing applied. Eye: Pupils are equal, round and reactive to light, extra-ocular movements are intact; there is normal conjunctiva bilaterally. Neck: The neck is supple, there is no tenderness and ROM intact. Cardiovascular: There is a regular rate and rhythm. No murmur, rub or gallop is appreciated. Respiratory: Lungs are clear to auscultation, respirations are non-labored, b reath sounds are equal. Gastrointestinal: Soft, non-distended, non-tender abdomen. Back: There is no tenderness to palpation in the midline, paralumbar, parathoracic or buttocks region. There is no obvious deformity . Musculoskeletal: ROM limited secondary to pain and stiffness from surgical p rocedure. Muscle strength in all major muscle groups of bilateral upper extremities 5/5, bilateral lower extremities 4/5. Neurological: CN 2-12 intact. There are no obvious motor or sensory deficits. Movement and coordination equal and intact. Sensory exam to light touch intact C5-T1 and intact from L2-S1. Reflexes 2/4 in bilateral upper and lower extremities. Negative Hoffmans, babinski, and clonus signs. Psychiatric: Cooperative, appropriate mood & affect, normal judgment. - Labs CBC & Chem 7: 03/16/23 10:50 03/15/23 05:33 Labs: Abnormal Lab Results - Last 24 Hours (Table) 03/16/23 Range/Units 10:50 WBC 13.3 H (3.8-10.6) k/uL RBC 3.34 L (4.30-5.90) m/uL Hgb 11.1 L (13.0-17.5) gm/dL Hct 32.7 L (39.0-53.0) % Neutrophils # 10.9 H (1.3-7.7) k/uL Assessment and Plan Assessment: Postop day 3: Revision [id number] decompression and fusion 1. L2-L3, L3-L4 adjacent segment disease, severe spondylosis with stenosis 2. L4-L5, L5-S1 pseudoarthrosis 3. Low back pain 4. Neurogenic claudication 5. Bilateral lower extremity weakness with radiculopathy Plan: -Appreciate training consultant and team management. -Activity: Patient is to be up ambulating 4 times a day, up in chair with all meals, limit bending and lifting and twisting to no more than 5 pounds. -Daily PT/OT to increase strength and mobility -LSO brace on when up and about, not needed in chair or bed. May remove for showers. -Pain control: Adequate at this time -Meds: reviewed -GI ppx: senna, Miralax -DVT PPX: Heparin -Hygiene: Shower today. Maintain dressing clean and dry. Meticulous cleaning after BMs away from the incision site -Encourage IS 10x/hr -Dispo: Pending physical therapy evaluation patient may be discharged later tod ay *I reviewed and discussed this case with my attending Dr. Hill, whom has reviewed this chart and films and is in agreement with assessment and plan of care as outlined above. I have personally seen and examined the patient, performed the documentation and the assessment and plan as written. Number of minutes spent on the visit: 20m.
[2023-03-17 08:37] VITALS: RESP 18
[2023-03-17] MEDS: SYMBICORT 80-4.5 MCG INHALER INHALATION SCH (08:39)
[2023-03-17] MEDS: GABAPENTIN 300 MG CAP PO SCH (09:11)
[2023-03-17] MEDS: oxyCODONE-APAP 10-325MG 1 EACH TAB PO PRN (09:11)
[2023-03-17] MEDS: HEPARIN SODIUM,PORCINE 5,000 UNIT/ML 1 ML VIAL SQ SCH (09:11)
[2023-03-17] MEDS: MULTIVITAMINS, THERA 1 EACH TAB PO SCH (09:11)
[2023-03-17] MEDS: ATORVASTATIN 40 MG TAB PO SCH (09:11)
[2023-03-17] MEDS: atenoloL 25 MG TAB PO SCH (09:11)
[2023-03-17] MEDS: lisinopriL 10 MG TAB PO SCH (09:11)
[2023-03-17] MEDS ORDERED: oxyCODONE-APAP 10-325MG 1 EACH TAB PO PRN (09:12)
[2023-03-17 15:50] VITALS: BP 114/78; PULSE 94; TEMP 98.5
--- NOTE | 2023-03-17 15:52 | P.DS ---
Providers Date of admission: 03/14/23 05:34 Expected date of discharge: 03/17/23 Attending physician: Boogie Hill DO Consults: 03/14/23 10:28 Consult Physician Routine Consulting Provider: Fei Joy Reason/Comments: Medical Management s/p revision L2-pelvis decompr fusion Do you want consulting provider notified?: Yes Primary care physician: [facility] Course: Hospital Course: The patient was evaluated preoperatively and found to have the diagnosis of lumbar spondylosis with adjacent segment disease. They underwent appropriate preoperative care and were willing to undergo the intended procedure. They underwent a successful revision L2 to pelvis decompression and fusion, were recovered appropriately and sent to the floor. While on the floor they worked with physical therapy, occupational therapy and nursing to enhance their recovery experience. Their pain was well controlled through their stay and they were started on appropriate medications, DVT ppx modalities, activity and dietary needs. Daily labs were monitored closely, and transfusions were only used when necessary. Medicine as well as other consulting services have made their input and have helped with our team approach and multidisciplinary care. PT milestones have been met and passed and they have made the recommendation of home with home care for this patient and treating providers agree with this care path. The patient will be discharged home with appropriate medications, instructions and follow-up information and in stable condition. Patient Condition at Discharge: Good Plan - Discharge Summary Discharge Rx Participant: Yes New Discharge Prescriptions: New Gabapentin 300 mg PO TID #90 cap cefaDROXiL [Duricef] 500 mg PO Q12HR #14 cap Cyclobenzaprine [Flexeril] 5 mg PO TID PRN #30 tablet PRN Reason: Muscle Spasm oxyCODONE-APAP 10-325MG [Percocet 10-325 mg] 1 tab PO Q4HR PRN #42 tab PRN Reason: Pain Sennosides/Docusate Sodium [Senna Plus 8.6-50 mg Tablet] 1 each PO DAILY PRN #20 tablet PRN Reason: Constipation No Action Ondansetron HCl [Zofran] 4 mg PO Q8HR PRN PRN Reason: Nausea Omeprazole [PriLOSEC] 40 mg PO BID PRN PRN Reason: Heartburn lisinopriL [Zestril] 10 mg PO DAILY atenoloL [Tenormin] 25 mg PO DAILY rOPINIRole HCL [Requip] 1 mg PO HS Cyclobenzaprine [Flexeril] 10 mg PO TID PRN PRN Reason: Muscle Pain traZODone HCL [Desyrel] 100 mg PO HS Ibuprofen [Motrin] 800 mg PO TID PRN PRN Reason: Pain Pseudoephedrine HCl [Sudafed] 60 mg PO Q6HR PRN PRN Reason: sinus congestion Aspirin 325 mg PO DAILY SUMAtriptan succinate [Imitrex] 100 mg PO ONCE PRN PRN Reason: Headache oxyCODONE-APAP 10-325MG [Percocet 10-325 mg] 1 tab PO Q6HR PRN PRN Reason: Pain Rimegepant Sulfate [Nurtec Odt] 75 mg PO Q2D Albuterol Sulfate [Ventolin HFA] 1 inh PO TID PRN PRN Reason: Shortness Of Breath Or Wheezing Rosuvastatin [Crestor] 20 mg PO QAM Amitriptyline HCl [Elavil] 50 mg PO HS Fluticasone Propion/Salmeterol [Advair 100-50 Diskus] 1 inhalation PO DAILY Multivitamin [Multivitamins Adult Gummies] 1 tab PO DAILY Discharge Medication List Cyclobenzaprine [Flexeril] 10 mg PO TID PRN 05/05/15 [History] Ibuprofen [Motrin] 800 mg PO TID PRN 05/05/15 [History] Omeprazole [PriLOSEC] 40 mg PO BID PRN 05/05/15 [History] Ondansetron HCl [Zofran] 4 mg PO Q8HR PRN 05/05/15 [History] atenoloL [Tenormin] 25 mg PO DAILY 05/05/15 [History] lisinopriL [Zestril] 10 mg PO DAILY 05/05/15 [History] rOPINIRole HCL [Requip] 1 mg PO HS 05/05/15 [History] traZODone HCL [Desyrel] 100 mg PO HS 05/05/15 [History] Aspirin 325 mg PO DAILY 07/03/15 [History] Pseudoephedrine HCl [Sudafed] 60 mg PO Q6HR PRN 07/03/15 [History] SUMAtriptan succinate [Imitrex] 100 mg PO ONCE PRN 06/10/21 [History] oxyCODONE-APAP 10-325MG [Percocet 10-325 mg] 1 tab PO Q6HR PRN 10/07/22 [History] Albuterol Sulfate [Ventolin HFA] 1 inh PO TID PRN 03/08/23 [History] Amitriptyline HCl [Elavil] 50 mg PO HS 03/08/23 [History] Fluticasone Propion/Salmeterol [Advair 100-50 Diskus] 1 inhalation PO DAILY 03/08/23 [History] Multivitamin [Multivitamins Adult Gummies] 1 tab PO DAILY 03/08/23 [History] Rimegepant Sulfate [Nurtec Odt] 75 mg PO Q2D 03/08/23 [History] Rosuvastatin [Crestor] 20 mg PO QAM 03/08/23 [History] Cyclobenzaprine [Flexeril] 5 mg PO TID PRN #30 tablet 03/17/23 [Rx] Gabapentin 300 mg PO TID #90 cap 03/17/23 [Rx] Sennosides/Docusate Sodium [Senna Plus 8.6-50 mg Tablet] 1 each PO DAILY PRN #20 tablet 03/17/23 [Rx] cefaDROXiL [Duricef] 500 mg PO Q12HR #14 cap 03/17/23 [Rx] oxyCODONE-APAP 10-325MG [Percocet 10-325 mg] 1 tab PO Q4HR PRN #42 tab 03/17/23 [Rx] Follow up Appointment(s)/Referral(s): Boogie Hill DO [Doctor of Osteopathic Medicine] - 03/28/23 1:30 pm Joelle Pickens [Primary Care Provider] - 1 Week Activity/Diet/Wound Care/Special Instructions: Spine Discharge and Recovery Instructions Date of Surgery: 03/14/2023 Diagnosis: Lumbar spondylosis with adjacent segment disease Procedure: Revision [id number] decompression and fusion Medications: See medication list All medication refills should be obtained through your primary care doctor or your clinic spine surgeon. Please discuss prescription refills at your follow up appointment. Do not call the hospital for medication refills. Activity: Encourage ambulation with assist of walker, Up and about 6-8x daily PT/OT daily work on balance, strength and mobility Up in chair with all meals Shower daily Brace: Use brace when up and about, do not wear in bed or shower Dressing: Leave your dressing in place for a total of 3 days post operatively. Then you may remove your dressing and leave open to air. Keep the area clean and if not able to keep area clean, then cover with sterile gauze and tape. Showering: You may shower 3 days after your procedure allowing soap and water to run over incision. Do not scrub. Do not soak. Blot dry. Follow up: Please confirm a follow up appointment with your surgeon 2 weeks post operatively. Please make an appointment to follow up with your PCP in 1-2 weeks after surgery for evaluation 3 phase, 3-week plan POST OP WEEKS 1-3 1. Lifting/carrying/pushing/pulling limited to less than 5 pounds. 2. Do not sit for longer than 15 minutes at one time. Get up and walk around. Prolonged sitting is NOT advised. If you lay down, see if you can tolerate laying down on you front (belly side) 3. Walk for periods of 15 minutes = 1 mile but no longer; do it multiple times times each day. 4. Ice your low back after activity. POST OP WEEKS 3-6 1. Lifting limited to less than 20 pounds. 2. Do not sit for longer than 30 minutes at a time. Frequently change positions. Use a sit-to stand workstation or take frequent breaks from sitting if you have returned to work. 3. Walk for 30 minutes each day. If possible, do these three or more times a day POST OP WEEKS 6+ At your 6-week appointment we will give you a physical therapy referral to focus on a core stabilization and strengthening program. You should also work on leg & buttock strengthening, hamstring & quadriceps stretching, and continue a low impact aerobic activity program such as swimming, walking, or riding a stationary bicycle. During the initial 6 weeks after your surgery, you are at the highest risk of re-injuring your spine. You should generally avoid BLTs (bending, lifting and twisting combination motions) and follow the above guidelines to reduce the chance of reinjury. You can anticipate post op appointments in our office at approximately 3 weeks and 6 weeks after your surgery. INCISION CARE: If your incision is not draining you do NOT need to cover it with a dressing. Keep your incision clean, dry and intact. In most cases, we apply skin glue, zonia or sutures to the incision at the time of surgery. This will be like a crust or have the appearance of a scab and will fall off in time on its own. The stitches or zonia need to be removed at 3 weeks post op appointment. You may begin to shower 3 days after surgery (this allows the glue to bryson well). However, please avoid scrubbing the incision site or peeling off any of the skin glue. This will ensure optimal healing of your incision. Also, during this time avoid soaking the incision area in water - this includes swimming pools, hot tubs or baths. No ointments, lotions or oils on the incision until your surgeon allows. Leave zonia, sutures or glue in place. Neurological dysfunction that comes on suddenly can also be a sign of a stroke. Below some common symptoms of a stroke are listed: B - balance difficulty such as sudden onset walking or leaning to one side - NEW E - eye problem such as sudden double vision or trouble seeing on one side - NEW F - Facial weakness or numbness on one side - NEW A - Arm or leg weakness or numbness on one side - NEW S - Slurred speech or difficulty with word finding - NEW T - Time is BRAIN! Call 911 as soon as you recognize these symptoms Diet: Consume a regular diet rich in vegetables and lean protein such as chicken or fish. You should consume in a ratio of approximately 20% fats|40% carb ohydrates|40%protein. Vegetables, sweet potatoes, brown rice or quinoa are examples of good carbohydrates. Chips, white bread, cookies and sweets/sugar are examples of bad carbohydrates. Limit your bad carbs, go wild with good carbs. "Life's Simple 7" Guidelines as per [place] [employer] These will help you reclaim your life after surgery and glazier helper in your recovery, keeping in mind your restrictions. (1) Get Active. Physical activity can help people lose weight, control high blood pressure and cholesterol, feel emotionally better, and sleep better. (2) Control Cholesterol. Avoid a diet high in saturated fat, trans fat, & cholesterol. Limit whole milk & cream, ice cream, butter, egg yolks, processed meats (like sausage and hot dogs), and fatty meats. Choose healthy foods that are low in saturated fat, trans fat and cholesterol which include: Fruits and vegetables, fiber rich grain products (like whole grain pasta and brown rice), lean meat such as chicken, fish, nuts, seeds, and legumes. (3) Eat Better. Eat small portions. Shop at the grocery with a list and do not stray from it. Tips for a healthy diet include: Limit sodium intake to less than 1500mg daily, avoid prepackaged, processed, and fast foods, choose a diet rich in fruits, vegetables, and whole grain, high fiber foods, and limit saturated & cholesterol in your diet. (4) Manage Blood Pressure. If you have high blood pressure, you should have a cuff at home so that you can check your blood pressure regularly. Be sure you have a good cuff. An arm one is generally better than a wrist one. Bring the cuff to a doctor's appointment to validate that the measurements that your cuff are taking are accurate. Take your blood pressure twice daily when you are sitting down and relaxing. Record the numbers in a log and bring this log with you to your doctors' appointments. (5) Lose Weight if your BMI is above 25. A healthy BMI is between 19-25. To calculate Your BMI, you may use a Standard BMI Calculator on the NIH BMI website: <www.nhlbi.nih.gov/guidelines/obesity/BMI/bmicalc.htm>. Weigh oneself daily. If you are overweight, set a goal to lose weight. A pound a week loss if needed is a good target. (6) Reduce Blood Sugar. Limit foods and liquids with "added sugars." (Added sugars include sucrose, fructose, glucose, maltose, dextrose, high fructose corn syrup, corn syrup, concentrated fruit juice and honey). (7) Stop Smoking. If you smoke, quitting smoking is one of the best things that you can do for your health. Smoking increases your risk of heart attack, stroke, and peripheral vascular disease, which is a build-up of plaque in your arteries. Please discard all the cigarettes and lighters in your house. Have a plan for what you will do when you have the urge to smoke. Direct and second- hand smoke shortens your life as well as the lives of your family, friends and others around you. For your health and the health of those around you, please consider quitting! Proper Bending Body Mechanics: Maintain a wide stance with one foot slightly in front of the other. Keep your back straight. Bend utilizing the strength in your hips and knees. Do not bend at the waist. Maintain the lifted object at your waist-level close to your body. Avoid lifting weight that causes immediately pain or pain anywhere in the body afterwards. Smoking/Nicotine If there was ever one thing that you could do to increase your overall health, decrease your risk of cardiovascular problems by about 39% the second you make the choice, it is to STOP SMOKING. Your body's most instant gratification is the second you stop smoking. We have all heard the studies, read the articles but it is true, smoking is extremely bad for your overall health, and moreover it is detrimental to your bone health. Nicotine, IN ANY FORM, kills bone cells, prevents your body from healing fractures, and significantly prolongs healing after surgery. In spine surgery specifically, it increases your risk of not healing your bones to create a fusion and increases your risk of having a revision surgery due to this up to 60%. I know it is hard. I know it feels impossible. But there are ways. Take control of your life. We are here to help you through it. And when you are ready, ask us and we can direct you to help if you desire. Use the START Plan to Quit Smoking (please visit the Helpguide.org website listed below for more information): S = Set a quit date. Choose a date within the next 2 weeks, so you have enough time to prepare without losing your motivation to quit. If you mainly smoke at work, quit on the weekend, so you have a few days to adjust to the change. T = Tell family, friends, and co-workers that you plan to quit. Let your friends and family in on your plan to quit smoking and tell them you need their support and encouragement to stop. Look for a quit frances who wants to stop smoking as well. You can help each other get through the rough times. A = Anticipate and plan for the challenges you'll face while quitting. Most people who begin smoking again do so within the first 3 months. You can help yourself make it through by preparing ahead for common challenges, such as nicotine withdrawal and cigarette cravings. R = Remove cigarettes and other tobacco products from your home, car, and work. Throw away all your cigarettes (no emergency pack!), lighters, ashtrays, and matches. Wash your clothes and freshen up anything that smells like smoke. Shampoo your car, clean your drapes and carpet, and steam your furniture. T = Talk to your doctor about getting help to quit. Your doctor can prescribe medication to help with withdrawal and suggest other alternatives. If you can't see a doctor, you can get many products over the counter at your local pharmacy or grocery store, including the nicotine patch, nicotine lozenges, and nicotine gum. Resources for Quitting Smoking: <https://www.[place].gov/documents/mdc/Quit_[place] cco_Resources_for_patients_313480_7.pdf> Supplementation: Take recommended dosages of Vitamin D and Calcium to help fortify your bones and help them to heal. See your health maintenance packet for dosages and recommended levels. DVT/VTE prophylaxis: You will be given compression stockings from the hospital. Wear these daily for the first two weeks after surgery. You may take them off at night. You may be prescribed a medication to help thin your blood. Take this as directed. If you are not prescribed this medication, early and frequent ambulation has been shown to be the best prophylaxis to deep vein thrombosis and sequelae related to this event. Discharge Disposition: HOME WITH HOME HEALTH SERVICES
== END 2023-03-17 16:15 | disposition home or self-care (01) | DRG 454 ==
LOC: 2ORMAIN 05:34 → EDSTATUS 08:30 → 4SSUR 17:09
PROVIDERS: ADMIT Orthopaedic Surgery; ATTEND Orthopaedic Surgery
PROC: 00NY0ZZ Release Lumbar Spinal Cord, Open Approach (ICD-10-PCS; principal; 2023-03-14 07:30)
PROC: 0QH304Z Insertion of Internal Fixation Device into Left Pelvic Bone, Open Approach (ICD-10-PCS; principal; 2023-03-14 07:30)
PROC: 00U207Z Supplement Dura Mater with Autologous Tissue Substitute, Open Approach (ICD-10-PCS; principal; 2023-03-14 07:30)
PROC: 0ST20ZZ Resection of Lumbar Vertebral Disc, Open Approach (ICD-10-PCS; principal; 2023-03-14 07:30)
PROC: 4A11X4G Monitoring of Peripheral Nervous Electrical Activity, Intraoperative, External Approach (ICD-10-PCS; principal; 2023-03-14 07:30)
PROC: 0QH204Z Insertion of Internal Fixation Device into Right Pelvic Bone, Open Approach (ICD-10-PCS; principal; 2023-03-14 07:30)
PROC: 0SG10AJ Fusion of 2 or more Lumbar Vertebral Joints with Interbody Fusion Device, Posterior Approach, Anterior Column, Open Approach (ICD-10-PCS; principal; 2023-03-14 07:30)
PROC: 0SG3071 Fusion of Lumbosacral Joint with Autologous Tissue Substitute, Posterior Approach, Posterior Column, Open Approach (ICD-10-PCS; principal; 2023-03-14 07:30)
PROC: 0SG1071 Fusion of 2 or more Lumbar Vertebral Joints with Autologous Tissue Substitute, Posterior Approach, Posterior Column, Open Approach (ICD-10-PCS; principal; 2023-03-14 07:30)
PROC: 01NB0ZZ Release Lumbar Nerve, Open Approach (ICD-10-PCS; principal; 2023-03-14 07:30)
DX: M47.26 Other spondylosis with radiculopathy, lumbar region (principal); G96.11 Dural tear; M96.0 Pseudarthrosis after fusion or arthrodesis; E78.2 Mixed hyperlipidemia; M06.9 Rheumatoid arthritis, unspecified; M48.062 Spinal stenosis, lumbar region with neurogenic claudication; M51.16 Intervertebral disc disorders with radiculopathy, lumbar region; I10 Essential (primary) hypertension; J44.89 Other specified chronic obstructive pulmonary disease; K21.9 Gastro-esophageal reflux disease without esophagitis; F41.9 Anxiety disorder, unspecified; G43.909 Migraine, unspecified, not intractable, without status migrainosus; M19.90 Unspecified osteoarthritis, unspecified site; H91.90 Unspecified hearing loss, unspecified ear; H93.13 Tinnitus, bilateral; F17.200 Nicotine dependence, unspecified, uncomplicated; Z71.6 Tobacco abuse counseling; Z79.82 Long term (current) use of aspirin; Z79.1 Long term (current) use of non-steroidal anti-inflammatories (NSAID); Z79.51 Long term (current) use of inhaled steroids; Z79.899 Other long term (current) drug therapy; Z98.1 Arthrodesis status
CPT/HCPCS: 72100; 72131; 80048; 81001; 85025; 86850; 86900; 86901; 94640

== ENCOUNTER → 2024-10-09 | Outpatient (CLI) | payer OTHER ==
--- NOTE | 2024-10-10 16:12 | CT ---
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 3-D reconstruction was create d on a separate workstation. Contrast used: mL of , (None if empty) Oral contrast used: (None if empty) CT DLP: 741.9 mGycm, Automated exposure control for dose reduction was used. FINDINGS: Prior ACL repair changes knee with fixation screw is severe femur additional device present leads near the distal femur both medially and laterally. There is moderate degeneration throughout t he joints of the with osteophyte formation joint space narrowing at any slightly worse in the lateral knee and patellofemoral joint.. No evidence of fracture. IMPRESSION: 1. Postsurgical changes from prior ACL repair. Hardware Appears in satisfactory position on CT imagi ng. 2. No evidence of fracture. 3. Moderate to severe degeneration changes at right knee. 10/10/2024 4:08 PM,10/09/2024 4:45 PM,Glenroy sDouza,CT knee LT wo con,[id number] [facility], , 10/10/2024 4:09 PM
== END | disposition home or self-care (01) ==
LOC: RADCTMAIN 15:01
PROVIDERS: ATTEND Psychiatry & Neurology Neurology
DX: M17.12 Unilateral primary osteoarthritis, left knee (principal); M25.462 Effusion, left knee; Z98.890 Other specified postprocedural states